=== PATIENT | male | born 1975 | race Two or more races ===

== ENCOUNTER 2022-10-05 19:33 | Emergency (ER) | payer OTHER ==
[~2022-10-05] VITALS: Ht 172.7 cm; Wt 204.1 kg
[2022-10-05] MEDS ORDERED: HYDROcodone-ACET 10/325MG TAB PO ONE (20:00)
[2022-10-05] MEDS ORDERED: KETOROLAC TROMETH 60MG/2ML VIAL IM ONE (20:00)
[2022-10-05 23:02] VITALS: BP 164/92; TEMP 98.7
[2022-10-05 23:09] VITALS: PULSE 98; RESP 22; O2SAT 98
== END 2022-10-05 23:54 | disposition home or self-care (01) ==
LOC: EDBD 19:33 → ER 19:37 → EEVIPCON 19:37 → ER 23:54
DX: S40.011A Contusion of right shoulder, initial encounter (principal); S30.0XXA Contusion of lower back and pelvis, initial encounter; Z88.8 Allergy status to other drugs, medicaments and biological substances; W07.XXXA Fall from chair, initial encounter; Y93.89 Activity, other specified; Y92.89 Other specified places as the place of occurrence of the external cause; Y99.8 Other external cause status
CPT/HCPCS: 73030; 96372; 99283; J1885

== ENCOUNTER 2022-11-07 12:30 | Inpatient (IN) | payer OTHER ==
[~2022-11-07] VITALS: Ht 172.7 cm; Wt 246.4 kg
[2022-11-07 18:39] VITALS: BP 120/77; PULSE 95; RESP 20; TEMP 97.7; O2SAT 94
[2022-11-07] MEDS ORDERED: DEXTROSE (50%) 50ML SYRG IV PRN (19:45)
[2022-11-07 20:00] VITALS: PULSE 96; RESP 18; O2SAT 95
[2022-11-07 21:45] VITALS: BP 145/82; PULSE 96; RESP 18; TEMP 98.2; O2SAT 95
[2022-11-07 21:46] VITALS: BP 145/82; PULSE 96; RESP 18; TEMP 97.3; O2SAT 95
[2022-11-07] MEDS: NYSTATIN TOPICAL CREAM 15GM TOP SCH (22:00)
[2022-11-07] MEDS: InsuLIN REG 1unit/0.01ml Soln (100units/ml) SC SCH (22:00)
[2022-11-07] MEDS: ACCU-CHEK COMFORT CURVE STRIP VI SCH (22:00)
[2022-11-07] MEDS: METHOCARBAMOL 500 MG TAB PO SCH (23:02)
[2022-11-07] MEDS: DOCUSATE SOD 100 MG CAP PO SCH (23:03)
[2022-11-07] MEDS: SENNA 8.6 MG TAB PO SCH (23:06)
[2022-11-08] VITALS (9 sets, daily range): BP systolic 108–140; BP diastolic 67–85; PULSE 88–111; RESP 16–22; TEMP 97.6–98.3; O2SAT 90–97
[2022-11-08] MEDS ORDERED: SEMA2INJ3 SC (02:35)
[2022-11-08] MEDS ORDERED: DICL1GEL59 EX (02:35)
[2022-11-08] MEDS ORDERED: [UNRECOGNIZED DRUG - CODE] PO (02:52)
[2022-11-08] MEDS ORDERED: METH-1181 PO (02:52)
[2022-11-08] MEDS ORDERED: DOCU-265 PO (02:52)
[2022-11-08] MEDS ORDERED: IRBE300T79 PO (02:52)
[2022-11-08] MEDS ORDERED: NIFE1TAB36 PO (02:52)
[2022-11-08] MEDS ORDERED: SENN1TAB14 PO (02:52)
[2022-11-08] MEDS: POLYETHYLENE GLYCOL 17 GM PWDR PO SCH (10:00)
[2022-11-08] MEDS: NIFEdipine ER 30 MG TAB PO SCH (10:46)
[2022-11-08] MEDS: LOSARTAN POTASSIUM 50 MG TAB PO SCH (10:48)
[2022-11-08] MEDS: ENOXAPARIN SOD 40 MG/0.4 ML SYRINGE SC SCH (10:48)
[2022-11-08] MEDS: HYDROcodone-ACET 5/325MG TAB PO PRN (10:59)
[2022-11-08] MEDS: MUPIROCIN 2% OINT 15gm or 22gm FOR MRSA NARES EACHNOSTRI SCH (22:42)
[2022-11-08] MEDS: ZOLPIDEM TARTRATE 5 MG TAB PO PRN (23:25)
[2022-11-09] VITALS (9 sets, daily range): BP systolic 109–137; BP diastolic 76–89; PULSE 83–100; RESP 16–18; TEMP 97.5–98.9; O2SAT 94–99
[2022-11-09] MEDS: HYDROcodone-ACET 10/325MG TAB PO PRN (08:33)
[2022-11-10] VITALS (7 sets, daily range): BP systolic 125–150; BP diastolic 75–106; PULSE 86–96; RESP 18–21; TEMP 97.5–98.6; O2SAT 92–100
[2022-11-11] VITALS (9 sets, daily range): BP systolic 118–145; BP diastolic 60–89; PULSE 89–116; RESP 17–20; TEMP 97.6–99; O2SAT 93–100
[2022-11-12] VITALS (7 sets, daily range): BP systolic 100–142; BP diastolic 72–96; PULSE 69–105; RESP 16–22; TEMP 97.7–98.7; O2SAT 92–99
[2022-11-13] VITALS (10 sets, daily range): BP systolic 103–161; BP diastolic 79–97; PULSE 83–102; RESP 18–22; TEMP 97.5–98.6; O2SAT 94–99
[2022-11-13 11:34] LABS: Basophils # (auto) 0 10 ^3/uL (0-0.2); Basophils % (auto) 0.7 % (0.0-2.0); Eosinophils # (auto) 0.1 10 ^3/uL (0-0.8); Eosinophils % (auto) 2.5 % (0.0-7.0); Hematocrit 50.5 % (41.0-53.0); Hemoglobin 16.4 g/dL (13.5-17.5); Lymphocytes # (auto) 1.3 10 ^3/uL (0.4-5.4); Lymphocytes % (auto) 25.4 % (10.0-50.0); Mean Corpuscular Hemoglobin 30.6 pg (28.0-32.0); Mean Corpuscular Hgb Conc. 32.5 g/dL (32.0-36.0); Monocytes # (auto) 0.5 10 ^3/uL (0-1.3); Monocytes % (auto) 9.9 % (0.0-12.0); Neutrophils # (auto) 3.2 10 ^3/uL (1.6-8.6); Neutrophils % (auto) 61.5 % (37.0-80.0); Nucleated Red Blood Cells % 0.2 %; Red Blood Cells 5.37 10^6/uL (4.5-5.90); Red Cell Distribution Width 14.7 % (11.8-14.3); White Blood Cell 5.3 10^3/uL (4.4-10.8)
[2022-11-13 11:36] LABS: Alanine Aminotransferase 36 U/L (7-40); Albumin 3.9 g/dL (3.2-4.8); Alkaline Phosphatase 68 U/L (46-116); Anion Gap 6 (5-15); Aspartate Aminotransferase 19 U/L (13-40); BUN/Creatinine Ratio 12.7 (10.0-20.0); Blood Urea Nitrogen 10 mg/dL (9-23); Calcium 9.4 mg/dL (8.7-10.4); Carbon Dioxide 28 mmol/L (20-30); Chloride 103 mmol/L (98-107); Glucose 117 mg/dL (74-106); Sodium 137 mmol/L (136-145)
[2022-11-13 11:37] LABS: Bilirubin, Total 0.4 mg/dL (0.2-1.0); Total Protein 6.9 g/dL (5.7-8.2)
[2022-11-13] MEDS: MUPIROCIN 2% OINT 15gm or 22gm FOR MRSA NARES EACHNOSTRI SCH (22:15)
[2022-11-14] VITALS (9 sets, daily range): BP systolic 113–149; BP diastolic 71–90; PULSE 93–113; RESP 17–20; TEMP 97.2–98.6; O2SAT 91–100
[2022-11-15] VITALS (10 sets, daily range): BP systolic 107–172; BP diastolic 67–106; PULSE 87–106; RESP 17–21; TEMP 97.9–98.5; O2SAT 92–100
[2022-11-16] VITALS (10 sets, daily range): BP systolic 129–151; BP diastolic 83–94; PULSE 90–104; RESP 18–20; TEMP 97.8–98.7; O2SAT 92–99
[2022-11-17] VITALS (11 sets, daily range): BP systolic 132–152; BP diastolic 35–103; PULSE 9–100; RESP 16–20; TEMP 97.4–98.5; O2SAT 93–100
[2022-11-18] VITALS (9 sets, daily range): BP systolic 122–137; BP diastolic 58–82; PULSE 88–95; RESP 18–20; TEMP 97.6–98.7; O2SAT 92–98
[2022-11-19] VITALS (10 sets, daily range): BP systolic 117–149; BP diastolic 68–98; PULSE 88–103; RESP 16–20; TEMP 97.6–98.1; O2SAT 90–99
[2022-11-20] VITALS (7 sets, daily range): BP systolic 119–138; BP diastolic 71–85; PULSE 91–107; RESP 18–22; TEMP 97.6–98.9; O2SAT 92–96
[2022-11-20] MEDS ORDERED: [UNRECOGNIZED DRUG - OTHER] SC SCH (13:00)
[2022-11-20] MEDS ORDERED: TIRZEPATIDE SC SCH (13:00)
[2022-11-20] MEDS: NYSTATIN TOPICAL POWDER 15GM TOP SCH (21:32)
[2022-11-21] VITALS (8 sets, daily range): BP systolic 135–155; BP diastolic 80–99; PULSE 71–103; RESP 18–20; TEMP 36.8; O2SAT 92–99
[2022-11-22] VITALS (9 sets, daily range): BP systolic 130–155; BP diastolic 82–98; PULSE 88–97; RESP 16–20; TEMP 36.7; O2SAT 93–99
[2022-11-23] VITALS (8 sets, daily range): BP systolic 126–158; BP diastolic 75–90; PULSE 82–102; RESP 20–24; TEMP 97.5–99.5; O2SAT 92–99
[2022-11-24] VITALS (8 sets, daily range): BP systolic 109–149; BP diastolic 68–97; PULSE 94–103; RESP 14–18; TEMP 97.8–99; O2SAT 93–99
[2022-11-25] VITALS (11 sets, daily range): BP systolic 116–145; BP diastolic 76–86; PULSE 65–106; RESP 16–20; TEMP 97.6–98.5; O2SAT 92–97
[2022-11-25] MEDS: ACETAMINOPHEN 325 MG TAB PO PRN (18:17)
[2022-11-26] VITALS (10 sets, daily range): BP systolic 102–145; BP diastolic 73–93; PULSE 73–131; RESP 16–22; TEMP 97.8–98.4; O2SAT 90–96
[2022-11-26 11:25] LABS: Basophils # (auto) 0 10 ^3/uL (0-0.2); Basophils % (auto) 0.7 % (0.0-2.0); Eosinophils # (auto) 0.1 10 ^3/uL (0-0.8); Eosinophils % (auto) 1.7 % (0.0-7.0); Hematocrit 48.2 % (41.0-53.0); Hemoglobin 15.9 g/dL (13.5-17.5); Lymphocytes # (auto) 1.6 10 ^3/uL (0.4-5.4); Lymphocytes % (auto) 26.3 % (10.0-50.0); Mean Corpuscular Hemoglobin 30.4 pg (28.0-32.0); Mean Corpuscular Hgb Conc. 33.1 g/dL (32.0-36.0); Monocytes # (auto) 0.6 10 ^3/uL (0-1.3); Monocytes % (auto) 10.3 % (0.0-12.0); Neutrophils # (auto) 3.8 10 ^3/uL (1.6-8.6); Nucleated Red Blood Cells % 0.1 %; Red Blood Cells 5.24 10^6/uL (4.5-5.90); Red Cell Distribution Width 14.7 % (11.8-14.3); White Blood Cell 6.2 10^3/uL (4.4-10.8)
[2022-11-26 11:47] LABS: Alanine Aminotransferase 29 U/L (7-40); Albumin 3.8 g/dL (3.2-4.8); Alkaline Phosphatase 67 U/L (46-116); Anion Gap 6 (5-15); Aspartate Aminotransferase 14 U/L (13-40); BUN/Creatinine Ratio 13.7 (10.0-20.0); Bilirubin, Total 0.5 mg/dL (0.2-1.0); Blood Urea Nitrogen 10 mg/dL (9-23); Calcium 9.5 mg/dL (8.5-10.1); Carbon Dioxide 29 mmol/L (20-30); Chloride 102 mmol/L (98-107); Glucose 111 mg/dL (74-106); Potassium 3.9 mmol/L (3.5-5.1); Sodium 137 mmol/L (136-145); Total Protein 6.8 g/dL (5.7-8.2)
[2022-11-26] MEDS: cefTRIAXone 1GM/50ML D5W 50 ML IV ONE (12:07)
[2022-11-26] MEDS: POLYETHYLENE GLYCOL 17 GM PWDR PO SCH (12:14)
[2022-11-26 12:15] LABS: Urine Epithelial Cast None Seen /hpf (<5)
[2022-11-26 12:27] LABS: Urine Bacteria FEW /hpf (None Seen); Urine Blood 1+ /uL (Negative); Urine Budding Yeast FEW /hpf (None Seen); Urine Clarity CLOUDY (Clear); Urine Color Yellow (Yellow); Urine Hyaline Cast FEW /lpf (0 - 2); Urine Mucus FEW (None Seen); Urine Protein, UAD 1+ (Negative); Urine Specific Gravity 1.023 (1.001-1.035); Urine Urobilinogen Normal (Negative); Urine WBC 216 /hpf (0 - 3); Urine WBC Clumps PRESENT /hpf (None Seen); Urine pH 5.5 (5.0-8.0)
[2022-11-26] MEDS: DOCUSATE SOD 100 MG CAP PO SCH (21:07)
[2022-11-27] MEDS: GOLYTELY 4L KIT PO ONE (06:00)
[2022-11-27] MEDS: cefTRIAXone 1GM/50ML D5W 50 ML IV SCH (09:00)
[2022-11-27 10:50] VITALS: O2SAT 93
[2022-11-27 17:00] VITALS: BP 123/83; PULSE 94; RESP 20; TEMP 98.6; O2SAT 94
[2022-11-27 20:00] VITALS: RESP 16
[2022-11-27 22:00] VITALS: BP 139/86; PULSE 108; RESP 19; TEMP 98; O2SAT 94
[2022-11-28] VITALS (8 sets, daily range): BP systolic 102–147; BP diastolic 49–83; PULSE 74–105; RESP 17–20; TEMP 97.3–98.3; O2SAT 93–96
[2022-11-29] VITALS (7 sets, daily range): BP systolic 118–137; BP diastolic 67–99; PULSE 60–98; RESP 20–22; TEMP 97.3–98.2; O2SAT 90–96
[2022-11-30 05:00] VITALS: BP 131/80; PULSE 99; RESP 20; TEMP 98; O2SAT 95
[2022-11-30 08:00] VITALS: PULSE 99; RESP 19
[2022-11-30 08:39] VITALS: BP 118/71; PULSE 99; RESP 19; TEMP 97.7; O2SAT 95
[2022-11-30 12:35] VITALS: BP 110/65; PULSE 101; RESP 18; TEMP 98.2; O2SAT 91
[2022-11-30 17:00] VITALS: BP 135/82; PULSE 79; RESP 19; TEMP 97.7; O2SAT 95
[2022-11-30 22:00] VITALS: BP 137/79; PULSE 80; RESP 18; TEMP 97.8; O2SAT 96
[2022-12-01 04:54] VITALS: BP_SYST 123; BP_SYST 134; BP_DIAS 77; BP_DIAS 80; PULSE 60; PULSE 99; RESP 18; TEMP 98.1; O2SAT 92; O2SAT 99
[2022-12-01 08:00] VITALS: RESP 17
[2022-12-01 09:00] VITALS: BP 127/79; PULSE 53; RESP 18; TEMP 98.2; O2SAT 91
[2022-12-01 13:00] VITALS: BP 136/91; PULSE 65; RESP 19; TEMP 98.6; O2SAT 93
[2022-12-01 16:57] VITALS: BP 135/84; PULSE 94; RESP 18; TEMP 98.3; O2SAT 91
[2022-12-01 22:00] VITALS: BP 147/97; PULSE 100; RESP 18; TEMP 98; O2SAT 90
[2022-12-02 05:00] VITALS: BP 133/78; PULSE 101; RESP 18; TEMP 97.8; O2SAT 92
[2022-12-02 08:30] VITALS: BP 146/82; PULSE 54; RESP 19; TEMP 98.1; O2SAT 90
[2022-12-02 09:44] VITALS: PULSE 62
[2022-12-02] MEDS ORDERED: GABA-339 PO (10:16)
[2022-12-02 12:30] VITALS: BP 123/79; PULSE 85; RESP 19; TEMP 97.7; O2SAT 91
[2022-12-02 16:33] VITALS: BP 130/81; PULSE 89; RESP 19; TEMP 97.7; O2SAT 96
[2022-12-02 22:00] VITALS: BP 141/87; PULSE 89; RESP 20; TEMP 97.8; O2SAT 90
[2022-12-03] VITALS (7 sets, daily range): BP systolic 114–141; BP diastolic 71–88; PULSE 75–103; RESP 18–20; TEMP 97.6–98.5; O2SAT 82–92
[2022-12-03] MEDS: GABAPENTIN 400 MG CAP PO SCH (10:11)
[2022-12-03] MEDS: HYDROcodone-ACET 5/325MG TAB PO PRN (10:14)
[2022-12-04] VITALS (7 sets, daily range): BP systolic 113–135; BP diastolic 70–82; PULSE 68–109; RESP 19–22; TEMP 97.5–98.5; O2SAT 90–96
[2022-12-05 05:00] VITALS: BP 114/67; PULSE 84; RESP 20; TEMP 98; O2SAT 93
[2022-12-05 08:00] VITALS: BP 138/90; PULSE 89; RESP 20; TEMP 98; O2SAT 97
[2022-12-05 08:30] VITALS: RESP 20
[2022-12-05 12:00] VITALS: BP 121/74; PULSE 80; RESP 20; TEMP 98.1; O2SAT 93
[2022-12-05] MEDS: GABAPENTIN 400 MG CAP PO SCH (15:15)
[2022-12-05 16:00] VITALS: BP 115/80; PULSE 104; RESP 20; TEMP 97.8; O2SAT 97
[2022-12-05 22:00] VITALS: BP 120/77; PULSE 88; RESP 19; TEMP 97.8; O2SAT 90
[2022-12-06 04:44] VITALS: BP 139/95; PULSE 83; RESP 19; TEMP 97.5; O2SAT 90
[2022-12-06 08:30] VITALS: RESP 20
[2022-12-06 12:54] VITALS: BP 123/69; PULSE 91; RESP 16; TEMP 98.6; O2SAT 95
[2022-12-06 17:00] VITALS: BP 114/69; PULSE 78; RESP 14; TEMP 97.9; O2SAT 95
[2022-12-06 19:50] VITALS: BP 113/69; PULSE 88; RESP 16; TEMP 98; O2SAT 92
[2022-12-06 22:00] VITALS: BP 113/69; PULSE 88; RESP 16; TEMP 98; O2SAT 92
[2022-12-06] MEDS: IBUPROFEN 800 MG TAB PO PRN (22:25)
[2022-12-07] VITALS (7 sets, daily range): BP systolic 128–144; BP diastolic 74–88; PULSE 64–98; RESP 14–20; TEMP 97.7–97.8; O2SAT 90–96
[2022-12-08] VITALS (7 sets, daily range): BP systolic 106–141; BP diastolic 63–91; PULSE 65–88; RESP 16–22; TEMP 97.7–98.1; O2SAT 90–99
[2022-12-09 05:00] VITALS: BP 151/84; PULSE 96; RESP 16; TEMP 97.5; O2SAT 87
[2022-12-09 08:35] VITALS: BP 122/76; PULSE 74; RESP 22; TEMP 98.3; O2SAT 93
[2022-12-09 12:40] VITALS: BP 120/69; PULSE 96; RESP 23; TEMP 98.5; O2SAT 94
[2022-12-09 16:35] VITALS: BP 133/76; PULSE 62; RESP 22; TEMP 97.7; O2SAT 95
[2022-12-09 18:48] LABS: Chloride 100 mmol/L (98-107); Potassium 5.4 mmol/L (3.5-5.1); Sodium 131 mmol/L (136-145)
[2022-12-09 18:50] LABS: Anion Gap 5 (5-15); Calcium 9.3 mg/dL (8.7-10.4); Carbon Dioxide 26 mmol/L (20-30)
[2022-12-09 18:55] LABS: BUN/Creatinine Ratio 8.2 (10.0-20.0); Blood Urea Nitrogen 6 mg/dL (9-23); Glucose 122 mg/dL (74-106)
[2022-12-09 22:00] VITALS: BP 119/65; PULSE 101; RESP 20; TEMP 98.7; O2SAT 90
[2022-12-10 05:00] VITALS: BP 107/58; PULSE 107; RESP 20; TEMP 98.6; O2SAT 94
[2022-12-10 08:00] VITALS: PULSE 96; RESP 18; TEMP 98.4; O2SAT 93
[2022-12-10 08:58] VITALS: BP 149/77; PULSE 95; RESP 18; TEMP 98.5; O2SAT 93
[2022-12-10] MEDS: POTASSIUM CHL 10 Meq TABLET PO SCH (09:06)
[2022-12-10] MEDS: FUROSEMIDE 20 MG TAB PO SCH ×2 (09:06→14:23)
[2022-12-10 12:47] VITALS: BP 123/66; PULSE 87; RESP 18; TEMP 98.4; O2SAT 93
[2022-12-10 16:38] VITALS: BP 110/71; PULSE 91; RESP 16; TEMP 98.7; O2SAT 91
[2022-12-10 22:00] VITALS: BP 144/85; PULSE 92; RESP 18; TEMP 97.9; O2SAT 93
[2022-12-11] VITALS (7 sets, daily range): BP systolic 102–145; BP diastolic 61–93; PULSE 63–103; RESP 16–22; TEMP 97.3–98.7; O2SAT 88–92
[2022-12-11 10:39] LABS: Anion Gap 3 (5-15); Carbon Dioxide 34 mmol/L (20-30); Chloride 99 mmol/L (98-107); Potassium 4.2 mmol/L (3.5-5.1); Sodium 136 mmol/L (136-145)
[2022-12-11 10:40] LABS: Calcium 9.2 mg/dL (8.5-10.1)
[2022-12-11 10:45] LABS: BUN/Creatinine Ratio 12.1 (10.0-20.0); Blood Urea Nitrogen 7 mg/dL (9-23); Glucose 115 mg/dL (74-106)
[2022-12-11] MEDS ORDERED: PIPERACILLIN-TAZO 4.5GM 100 ML IV SCH (12:00)
[2022-12-12] VITALS (7 sets, daily range): BP systolic 103–121; BP diastolic 67–78; PULSE 72–102; RESP 18–20; TEMP 36.7; O2SAT 88–99
[2022-12-13] VITALS (7 sets, daily range): BP systolic 116–132; BP diastolic 67–81; PULSE 64–97; RESP 14–24; TEMP 36.7; O2SAT 90–91
[2022-12-14 05:00] VITALS: BP 126/75; PULSE 97; RESP 19; TEMP 97.8; O2SAT 92
[2022-12-14 09:00] VITALS: BP 122/80; PULSE 92; RESP 20; TEMP 98.2; O2SAT 100
[2022-12-14] MEDS: MIDAZOLAM HCL 2MG/2ML 2ml VIAL (1mg/ml) ONE (12:51)
[2022-12-14 13:00] VITALS: BP 119/88; PULSE 90; RESP 18; TEMP 97.5; O2SAT 99
[2022-12-14 17:00] VITALS: BP 119/60; PULSE 95; RESP 20; TEMP 97.7; O2SAT 93
[2022-12-14 19:30] VITALS: PULSE 79; RESP 18; O2SAT 90
[2022-12-15] MEDS: HYDROcodone-ACET 10/325MG TAB PO PRN (01:19)
[2022-12-15 05:00] VITALS: BP 129/76; PULSE 87; RESP 15; TEMP 97.6; O2SAT 83
[2022-12-15 09:00] VITALS: BP 128/82; PULSE 90; RESP 17; TEMP 98; O2SAT 85
[2022-12-15 13:00] VITALS: BP 124/64; PULSE 92; RESP 18; TEMP 97.6; O2SAT 90
[2022-12-15 17:00] VITALS: BP 131/82; PULSE 93; RESP 18; TEMP 98; O2SAT 96
[2022-12-15 20:00] VITALS: PULSE 94; RESP 20; O2SAT 97
[2022-12-15 22:00] VITALS: BP 137/90; PULSE 94; RESP 20; TEMP 97.6; O2SAT 97
[2022-12-16 05:00] VITALS: BP 123/98; PULSE 93; RESP 22; TEMP 97.4; O2SAT 88
[2022-12-16 08:54] VITALS: BP 126/87; PULSE 79; RESP 21; TEMP 98.7; O2SAT 95
[2022-12-16 13:00] VITALS: BP 117/75; PULSE 91; RESP 18; TEMP 98.1; O2SAT 96
[2022-12-16 17:00] VITALS: BP 112/58; PULSE 98; RESP 18; TEMP 98.5; O2SAT 100
[2022-12-16 20:00] VITALS: PULSE 89; RESP 20; O2SAT 97
[2022-12-16 21:44] VITALS: BP 127/74; PULSE 89; RESP 21; TEMP 97.9; O2SAT 97
[2022-12-17] VITALS (7 sets, daily range): BP systolic 100–144; BP diastolic 60–87; PULSE 74–100; RESP 19–20; TEMP 98.1–98.4; O2SAT 90–95
[2022-12-18 05:00] VITALS: BP 112/70; PULSE 105; RESP 20; TEMP 97.8; O2SAT 94
[2022-12-18 08:00] VITALS: PULSE 96; RESP 20; O2SAT 90
[2022-12-18 09:00] VITALS: BP 140/87; PULSE 93; RESP 18; TEMP 98.1; O2SAT 93
[2022-12-18 13:00] VITALS: BP 136/78; PULSE 80; RESP 20; TEMP 98.9; O2SAT 93
[2022-12-18 17:00] VITALS: BP 91/42; PULSE 68; RESP 18; TEMP 97.9; O2SAT 100
[2022-12-18 22:00] VITALS: BP 100/56; PULSE 98; RESP 18; TEMP 97.9; O2SAT 90
[2022-12-19] VITALS (7 sets, daily range): BP systolic 113–132; BP diastolic 64–84; PULSE 86–103; RESP 18–22; TEMP 97.7–99.3; O2SAT 90–96
[2022-12-19] MEDS: HYDROcodone-ACET 10/325MG TAB PO PRN (05:53)
[2022-12-20] VITALS (7 sets, daily range): BP systolic 90–143; BP diastolic 50–71; PULSE 88–100; RESP 17–19; TEMP 97.9–98.9; O2SAT 91–92
[2022-12-21] VITALS (7 sets, daily range): BP systolic 127–143; BP diastolic 68–86; PULSE 90–106; RESP 16–20; TEMP 97.5–98.6; O2SAT 90–99
[2022-12-22 05:00] VITALS: BP 123/79; PULSE 69; RESP 20; TEMP 97.7; O2SAT 91
[2022-12-22 08:00] VITALS: BP 137/94; PULSE 94; RESP 22; TEMP 97.6; O2SAT 90
[2022-12-22 09:00] VITALS: BP 137/94; PULSE 94; RESP 22; TEMP 97.6; O2SAT 97
[2022-12-22 13:00] VITALS: BP 149/75; PULSE 94; RESP 21; TEMP 97.8; O2SAT 91
[2022-12-22 17:00] VITALS: BP 144/66; PULSE 82; RESP 16; TEMP 97.6; O2SAT 95
[2022-12-22 22:00] VITALS: BP 107/67; PULSE 101; RESP 18; TEMP 98.8; O2SAT 99
[2022-12-23 05:00] VITALS: BP 124/87; PULSE 66; RESP 20; TEMP 98.1; O2SAT 92
[2022-12-23 08:30] LABS: Basophils # (auto) 0 10 ^3/uL (0-0.2); Basophils % (auto) 0.4 % (0.0-2.0); Eosinophils # (auto) 0.1 10 ^3/uL (0-0.8); Eosinophils % (auto) 1.4 % (0.0-7.0); Hematocrit 47.8 % (41.0-53.0); Hemoglobin 15.5 g/dL (13.5-17.5); Lymphocytes # (auto) 1.1 10 ^3/uL (0.4-5.4); Lymphocytes % (auto) 18.7 % (10.0-50.0); Mean Corpuscular Hemoglobin 30.6 pg (28.0-32.0); Mean Corpuscular Hgb Conc. 32.4 g/dL (32.0-36.0); Mean Corpuscular Volume 94.4 fL (80.0-100.0); Monocytes # (auto) 0.5 10 ^3/uL (0-1.3); Monocytes % (auto) 7.9 % (0.0-12.0); Neutrophils # (auto) 4.1 10 ^3/uL (1.6-8.6); Neutrophils % (auto) 71.6 % (37.0-80.0); Nucleated Red Blood Cells % 0.3 %; Red Blood Cells 5.06 10^6/uL (4.5-5.90); Red Cell Distribution Width 15.3 % (11.8-14.3); White Blood Cell 5.8 10^3/uL (4.4-10.8)
[2022-12-23 08:50] LABS: Alanine Aminotransferase 24 U/L (7-40); Albumin 3.8 g/dL (3.2-4.8); Alkaline Phosphatase 71 U/L (46-116); Anion Gap 3 (5-15); Aspartate Aminotransferase 17 U/L (13-40); BUN/Creatinine Ratio 11.7 (10.0-20.0); Bilirubin, Total 0.4 mg/dL (0.2-1.0); Blood Urea Nitrogen 7 mg/dL (9-23); Calcium 9.1 mg/dL (8.5-10.1); Carbon Dioxide 34 mmol/L (20-30); Chloride 97 mmol/L (98-107); Glucose 93 mg/dL (74-106); Potassium 4.6 mmol/L (3.5-5.1); Sodium 134 mmol/L (136-145); Total Protein 6.5 g/dL (5.7-8.2)
[2022-12-23 09:00] VITALS: BP 110/78; PULSE 98; RESP 20; TEMP 98.1; O2SAT 90
[2022-12-23 13:00] VITALS: BP 124/73; PULSE 99; RESP 21; TEMP 97.5; O2SAT 92
[2022-12-23 17:00] VITALS: BP 103/34; PULSE 59; RESP 21; TEMP 97.5; O2SAT 92
[2022-12-23 22:00] VITALS: BP 118/58; PULSE 61; RESP 21; TEMP 98.1; O2SAT 90
[2022-12-24 05:00] VITALS: BP 151/86; PULSE 99; RESP 21; TEMP 97.6; O2SAT 90
[2022-12-24 08:00] VITALS: O2SAT 93
[2022-12-24 09:00] VITALS: BP 124/52; PULSE 63; RESP 19; TEMP 97.4; O2SAT 90
[2022-12-24 13:00] VITALS: BP 128/58; PULSE 56; RESP 19; TEMP 97.7; O2SAT 92
[2022-12-24 20:00] VITALS: PULSE 85; O2SAT 92
[2022-12-24 22:00] VITALS: BP 117/68; PULSE 85; RESP 18; TEMP 98.9; O2SAT 89
[2022-12-25] VITALS (7 sets, daily range): BP systolic 123–152; BP diastolic 63–86; PULSE 71–102; RESP 14–22; TEMP 97.5–98.6; O2SAT 92–100
[2022-12-26] VITALS (7 sets, daily range): BP systolic 106–139; BP diastolic 62–90; PULSE 73–100; RESP 16–20; TEMP 97.6–98.2; O2SAT 90–95
[2022-12-26] MEDS: METHOCARBAMOL 500 MG TAB PO SCH (12:43)
[2022-12-26] MEDS: POTASSIUM CHL 10 Meq TABLET PO SCH (14:55)
[2022-12-26] MEDS: FUROSEMIDE 20 MG TAB PO SCH (18:48)
[2022-12-26] MEDS: HYDROcodone-ACET 5/325MG TAB PO PRN (18:48)
[2022-12-27] VITALS (7 sets, daily range): BP systolic 113–154; BP diastolic 68–93; PULSE 88–98; RESP 18–19; TEMP 97.7–98.3; O2SAT 90–96
[2022-12-27 06:19] LABS: Anion Gap 3 (5-15); Carbon Dioxide 36 mmol/L (20-30); Chloride 99 mmol/L (98-107); Potassium 4.5 mmol/L (3.5-5.1); Sodium 138 mmol/L (136-145)
[2022-12-27 06:20] LABS: Calcium 9.2 mg/dL (8.7-10.4)
[2022-12-27 06:25] LABS: BUN/Creatinine Ratio 17.4 (10.0-20.0); Blood Urea Nitrogen 12 mg/dL (9-23); Glucose 101 mg/dL (74-106)
[2022-12-27] MEDS: HYDROcodone-ACET 5/325MG TAB PO PRN (11:16)
[2022-12-28] VITALS (7 sets, daily range): BP systolic 115–129; BP diastolic 64–86; PULSE 100–104; RESP 18–21; TEMP 98.1–98.8; O2SAT 90–93
[2022-12-29] VITALS (7 sets, daily range): BP systolic 98–134; BP diastolic 62–88; PULSE 70–102; RESP 17–20; TEMP 97.2–98.6; O2SAT 90–94
[2022-12-30 05:00] VITALS: BP 113/81; PULSE 105; RESP 18; TEMP 97.7; O2SAT 90
[2022-12-30 08:00] VITALS: BP 102/81; PULSE 104; PULSE 99; RESP 18; TEMP 98.7; O2SAT 92
[2022-12-30 12:00] VITALS: BP_SYST 108; BP_SYST 115; BP_DIAS 79; BP_DIAS 83; PULSE 104; PULSE 80; RESP 18; TEMP 97.8; TEMP 98.5; O2SAT 91; O2SAT 96
[2022-12-30 16:00] VITALS: BP 110/33; PULSE 112; RESP 22; TEMP 99.5; O2SAT 92
[2022-12-30 20:00] VITALS: RESP 20
[2022-12-30 22:00] VITALS: BP 111/65; PULSE 106; RESP 21; TEMP 98.6; O2SAT 91
[2022-12-31 05:00] VITALS: BP 128/58; PULSE 68; RESP 21; TEMP 98; O2SAT 90
[2022-12-31 08:00] VITALS: PULSE 97; RESP 18
[2022-12-31 08:53] VITALS: BP 145/84; PULSE 100; RESP 19; TEMP 98.6; O2SAT 90
[2022-12-31 12:30] VITALS: BP 145/101; PULSE 114; RESP 16; TEMP 99.3; O2SAT 90
[2022-12-31 16:36] VITALS: BP_SYST 125; BP_SYST 145; BP_DIAS 69; BP_DIAS 81; PULSE 114; PULSE 119; RESP 16; RESP 18; TEMP 98; TEMP 99.3; O2SAT 90; O2SAT 91
[2022-12-31 20:58] VITALS: BP 115/75; PULSE 96; RESP 20; TEMP 98.5; O2SAT 85
[2023-01-01 05:21] VITALS: BP 154/97; PULSE 113; RESP 20; O2SAT 93
[2023-01-01 08:00] VITALS: PULSE 109; RESP 19
[2023-01-01 08:40] VITALS: BP 132/87; PULSE 120; RESP 20; TEMP 99.2; O2SAT 92
[2023-01-01 12:40] VITALS: BP 132/80; PULSE 109; RESP 19; TEMP 99.7; O2SAT 90
[2023-01-01 16:40] VITALS: BP 125/68; PULSE 99; RESP 18; TEMP 98.6; O2SAT 90
[2023-01-01 22:00] VITALS: BP 120/70; PULSE 107; RESP 18; TEMP 99.2; O2SAT 92
[2023-01-02 05:00] VITALS: BP 122/47; PULSE 87; RESP 17; TEMP 98; O2SAT 94
[2023-01-02 09:00] VITALS: BP 130/82; PULSE 100; RESP 17; TEMP 98.2; O2SAT 94
[2023-01-02 13:00] VITALS: BP 105/74; PULSE 96; RESP 17; TEMP 99.2; O2SAT 93
[2023-01-02 17:00] VITALS: BP 118/64; PULSE 85; RESP 22; TEMP 100; O2SAT 92
[2023-01-02 20:00] VITALS: PULSE 89; O2SAT 2
[2023-01-02] MEDS: HYDROmorphone HCL 2 MG TAB PO PRN (20:36)
[2023-01-02] MEDS ORDERED: HYDROcodone-ACET 5/325MG TAB PO PRN (20:45)
[2023-01-02 22:00] VITALS: BP 102/60; PULSE 103; RESP 18; TEMP 98.5; O2SAT 94
[2023-01-03] VITALS (12 sets, daily range): BP systolic 107–131; BP diastolic 59–86; PULSE 69–111; RESP 12–22; TEMP 98.2–99.4; O2SAT 70–98
[2023-01-03] MEDS: NALOXONE HCL 0.4 MG/ML VIAL SUBCUT ONE (10:12)
[2023-01-03] MEDS: HYDROcodone-ACET 5/325MG TAB PO PRN (18:14)
[2023-01-04] VITALS (19 sets, daily range): BP systolic 101–124; BP diastolic 55–78; PULSE 80–105; RESP 18–22; TEMP 98.1–99.3; O2SAT 90–98
[2023-01-04 00:18] LABS: Basophils # (auto) 0.1 10 ^3/uL (0-0.2); Basophils % (auto) 0.6 % (0.0-2.0); Eosinophils # (auto) 0 10 ^3/uL (0-0.8); Eosinophils % (auto) 0.4 % (0.0-7.0); Hematocrit 46.1 % (41.0-53.0); Hemoglobin 14.9 g/dL (13.5-17.5); Lymphocytes # (auto) 1.2 10 ^3/uL (0.4-5.4); Lymphocytes % (auto) 14.4 % (10.0-50.0); Mean Corpuscular Hemoglobin 30.7 pg (28.0-32.0); Mean Corpuscular Hgb Conc. 32.4 g/dL (32.0-36.0); Mean Corpuscular Volume 94.8 fL (80.0-100.0); Monocytes # (auto) 0.7 10 ^3/uL (0-1.3); Monocytes % (auto) 9.2 % (0.0-12.0); Neutrophils # (auto) 6.1 10 ^3/uL (1.6-8.6); Neutrophils % (auto) 75.4 % (37.0-80.0); Nucleated Red Blood Cells % 0.1 %; Red Blood Cells 4.86 10^6/uL (4.5-5.90); Red Cell Distribution Width 15.7 % (11.8-14.3); White Blood Cell 8.1 10^3/uL (4.4-10.8)
[2023-01-04 00:24] LABS: Chloride 95 mmol/L (98-107); Potassium 4.4 mmol/L (3.5-5.1); Sodium 134 mmol/L (136-145)
[2023-01-04 00:25] LABS: Anion Gap 1 (5-15); Calcium 8.9 mg/dL (8.7-10.4); Carbon Dioxide 38 mmol/L (20-30)
[2023-01-04 00:30] LABS: BUN/Creatinine Ratio 19.7 (10.0-20.0); Blood Urea Nitrogen 14 mg/dL (9-23); Glucose 124 mg/dL (74-106)
[2023-01-04] MEDS: levoFLOXacin 500 MG TAB PO SCH (00:34)
[2023-01-04] MEDS: IPRATROPIUM BROM 0.5 MG/2.5ML INH SOL NEB SCH (00:48)
[2023-01-04] MEDS: ALBUTEROL MEDNEB 2.5 mg/3ml NEB NEB SCH (00:48)
[2023-01-04] MEDS ORDERED: NITROGLYCERIN 0.4 MG SL TAB SL PRN (19:30)
[2023-01-04] MEDS ORDERED: MORPHINE SULFATE INJ 2 MG/ml SYRG IV PRN (19:30)
[2023-01-05] VITALS (12 sets, daily range): BP systolic 106–116; BP diastolic 60–78; PULSE 63–105; RESP 14–20; TEMP 97.6–99.3; O2SAT 91–100
[2023-01-06] VITALS (15 sets, daily range): BP systolic 105–130; BP diastolic 54–78; PULSE 75–104; RESP 18–23; TEMP 98.1–98.7; O2SAT 84–100
[2023-01-06] MEDS: FUROSEMIDE 40 MG TAB PO SCH (06:00)
[2023-01-06] MEDS ORDERED: FUROSEMIDE 40 MG TAB PO SCH (18:00)
[2023-01-07] VITALS (16 sets, daily range): BP systolic 113–138; BP diastolic 67–77; PULSE 87–106; RESP 18–23; TEMP 97.6–98.4; O2SAT 90–100
[2023-01-07] MEDS: METHOCARBAMOL 500 MG TAB PO PRN (22:31)
[2023-01-08] VITALS (15 sets, daily range): BP systolic 100–153; BP diastolic 52–89; PULSE 86–108; RESP 16–98; TEMP 97.4–98.8; O2SAT 20–100
[2023-01-08] MEDS: ENOXAPARIN SOD 60 MG/0.6 ML SYRINGE SC SCH (12:04)
[2023-01-09] VITALS (16 sets, daily range): BP systolic 115–140; BP diastolic 68–82; PULSE 88–114; RESP 16–23; TEMP 97.8–98.8; O2SAT 91–100
[2023-01-10] VITALS (14 sets, daily range): BP systolic 100–142; BP diastolic 70–80; PULSE 91–109; RESP 14–24; TEMP 97.6–98.6; O2SAT 90–99
[2023-01-11] VITALS (17 sets, daily range): BP systolic 107–135; BP diastolic 65–76; PULSE 82–112; RESP 18–22; TEMP 97.4–98.5; O2SAT 91–99
[2023-01-12] VITALS (14 sets, daily range): BP systolic 103–134; BP diastolic 70–79; PULSE 88–107; RESP 18–20; TEMP 98–98.3; O2SAT 93–99
[2023-01-13] VITALS (13 sets, daily range): BP systolic 106–137; BP diastolic 61–79; PULSE 82–103; RESP 18–20; TEMP 97.3–98.7; O2SAT 90–99
[2023-01-14] VITALS (16 sets, daily range): BP systolic 100–117; BP diastolic 66–73; PULSE 88–107; RESP 18–22; TEMP 97.7–99.5; O2SAT 5–98
[2023-01-14 07:26] LABS: Basophils # (auto) 0 10 ^3/uL (0-0.2); Basophils % (auto) 0.6 % (0.0-2.0); Eosinophils # (auto) 0.1 10 ^3/uL (0-0.8); Eosinophils % (auto) 1.8 % (0.0-7.0); Hematocrit 47.1 % (41.0-53.0); Hemoglobin 15.1 g/dL (13.5-17.5); Lymphocytes # (auto) 0.8 10 ^3/uL (0.4-5.4); Lymphocytes % (auto) 14.3 % (10.0-50.0); Mean Corpuscular Hemoglobin 30.1 pg (28.0-32.0); Mean Corpuscular Hgb Conc. 32.1 g/dL (32.0-36.0); Mean Corpuscular Volume 93.6 fL (80.0-100.0); Monocytes # (auto) 0.4 10 ^3/uL (0-1.3); Monocytes % (auto) 7.7 % (0.0-12.0); Neutrophils # (auto) 4.1 10 ^3/uL (1.6-8.6); Neutrophils % (auto) 75.6 % (37.0-80.0); Nucleated Red Blood Cells % 0.1 %; Red Blood Cells 5.03 10^6/uL (4.5-5.90); Red Cell Distribution Width 15.5 % (11.8-14.3); White Blood Cell 5.4 10^3/uL (4.4-10.8)
[2023-01-14 07:37] LABS: Alanine Aminotransferase 17 U/L (7-40); Alkaline Phosphatase 62 U/L (46-116); Anion Gap 3 (5-15); Aspartate Aminotransferase 13 U/L (13-40); BUN/Creatinine Ratio 15.6 (10.0-20.0); Bilirubin, Total 0.5 mg/dL (0.2-1.0); Blood Urea Nitrogen 10 mg/dL (9-23); Calcium 9.3 mg/dL (8.5-10.1); Carbon Dioxide 38 mmol/L (20-30); Chloride 98 mmol/L (98-107); Glucose 106 mg/dL (74-106); Potassium 4.3 mmol/L (3.5-5.1); Sodium 139 mmol/L (136-145); Total Protein 6.7 g/dL (5.7-8.2)
[2023-01-14] MEDS: ENOXAPARIN SOD 60 MG/0.6 ML SYRINGE SC SCH (21:32)
[2023-01-15] VITALS (16 sets, daily range): BP systolic 111–130; BP diastolic 66–86; PULSE 64–107; RESP 16–22; TEMP 36.8; O2SAT 3–100
[2023-01-16] VITALS (16 sets, daily range): BP systolic 123–134; BP diastolic 69–89; PULSE 86–104; RESP 20–24; TEMP 97.7–98.1; O2SAT 92–98
[2023-01-17] VITALS (16 sets, daily range): BP systolic 108–140; BP diastolic 58–79; PULSE 82–106; RESP 18–21; TEMP 97.5–98.6; O2SAT 89–97
[2023-01-18] VITALS (17 sets, daily range): BP systolic 99–143; BP diastolic 55–92; PULSE 87–104; RESP 15–22; TEMP 97.5–98.2; O2SAT 92–99
[2023-01-19] VITALS (17 sets, daily range): BP systolic 105–142; BP diastolic 59–84; PULSE 86–105; RESP 14–18; TEMP 97.5–98.2; O2SAT 90–100
[2023-01-20] VITALS (15 sets, daily range): BP systolic 114–132; BP diastolic 70–81; PULSE 64–101; RESP 14–20; TEMP 97.5–98.1; O2SAT 91–100
[2023-01-21] VITALS (16 sets, daily range): BP systolic 120–140; BP diastolic 70–82; PULSE 88–104; RESP 17–22; TEMP 97.5–98.1; O2SAT 91–100
[2023-01-21] MEDS: ALBUTEROL SULF 2.5 MG/0.5ML(0.5%) NEB SOLN ONE ×2 (12:23→18:06)
[2023-01-21] MEDS ORDERED: GABA-1251 PO (16:51)
[2023-01-21] MEDS ORDERED: ENO60SY SC (16:51)
[2023-01-21] MEDS ORDERED: DOCU-265 PO (16:51)
[2023-01-21] MEDS ORDERED: LOSA50TA46 PO (16:51)
[2023-01-21] MEDS ORDERED: HYDR-4902 PO (16:51)
[2023-01-21] MEDS ORDERED: FURO40TA4 PO (16:51)
[2023-01-21] MEDS ORDERED: IBUP-1455 PO (16:51)
[2023-01-21] MEDS ORDERED: NIFE1TAB31 PO (16:51)
[2023-01-21] MEDS ORDERED: SENN-105 PO (16:51)
[2023-01-21] MEDS ORDERED: METH-1181 PO (16:51)
[2023-01-21] MEDS ORDERED: POTA-211 PO (16:51)
[2023-01-22] VITALS (15 sets, daily range): BP systolic 120–138; BP diastolic 70–94; PULSE 93–109; RESP 14–20; TEMP 97.5–98.2; O2SAT 90–100
[2023-01-22] MEDS: ALBUTEROL SULF 2.5 MG/0.5ML(0.5%) NEB SOLN NEB SCH (00:25)
[2023-01-23] VITALS (14 sets, daily range): BP systolic 99–126; BP diastolic 68–88; PULSE 93–110; RESP 17–21; TEMP 97.5–98.9; O2SAT 91–100
[2023-01-24] VITALS (17 sets, daily range): BP systolic 123–133; BP diastolic 72–79; PULSE 73–107; RESP 17–20; TEMP 98.1–98.8; O2SAT 60–100
[2023-01-25] VITALS (15 sets, daily range): BP systolic 121–131; BP diastolic 74–89; PULSE 90–108; RESP 14–24; TEMP 97.7–98.2; O2SAT 92–99
[2023-01-26] VITALS (17 sets, daily range): BP systolic 104–117; BP diastolic 60–75; PULSE 76–104; RESP 16–22; TEMP 97.8–98.2; O2SAT 90–99
[2023-01-27] VITALS (17 sets, daily range): BP systolic 104–145; BP diastolic 60–88; PULSE 73–103; RESP 14–20; TEMP 98–99.1; O2SAT 90–100
[2023-01-28] VITALS (15 sets, daily range): BP systolic 95–121; BP diastolic 58–73; PULSE 68–112; RESP 18–20; TEMP 97.5–98.4; O2SAT 92–100
[2023-01-28] MEDS: IBUPROFEN 800 MG TAB PO SCH (12:45)
[2023-01-28] MEDS: PANTOPRAZOLE 40 MG TAB PO SCH (21:40)
[2023-01-29] VITALS (16 sets, daily range): BP systolic 99–123; BP diastolic 62–75; PULSE 80–101; RESP 17–22; TEMP 97–98.4; O2SAT 91–100
[2023-01-30] VITALS (15 sets, daily range): BP systolic 111–129; BP diastolic 65–76; PULSE 86–112; RESP 15–25; TEMP 97.1–98.5; O2SAT 93–99
[2023-01-31] VITALS (16 sets, daily range): BP systolic 100–138; BP diastolic 67–91; PULSE 88–110; RESP 17–20; TEMP 97.3–99.2; O2SAT 91–100
[2023-01-31] MEDS: IBUPROFEN 800 MG TAB PO PRN (09:30)
[2023-02-01] VITALS (16 sets, daily range): BP systolic 108–122; BP diastolic 67–92; PULSE 87–112; RESP 16–22; TEMP 97.5–99; O2SAT 90–100
[2023-02-02] VITALS (19 sets, daily range): BP systolic 95–116; BP diastolic 58–75; PULSE 81–108; RESP 15–20; TEMP 97.7–98.1; O2SAT 92–100
[2023-02-03] VITALS (17 sets, daily range): BP systolic 104–121; BP diastolic 55–74; PULSE 55–110; RESP 16–85; TEMP 97.1–98.6; O2SAT 88–98
[2023-02-03 06:50] LABS: Basophils # (auto) 0 10 ^3/uL (0-0.2); Basophils % (auto) 0.7 % (0.0-2.0); Eosinophils # (auto) 0.1 10 ^3/uL (0-0.8); Eosinophils % (auto) 1.7 % (0.0-7.0); Hematocrit 44.9 % (41.0-53.0); Hemoglobin 14.6 g/dL (13.5-17.5); Lymphocytes # (auto) 1.2 10 ^3/uL (0.4-5.4); Lymphocytes % (auto) 18.7 % (10.0-50.0); Mean Corpuscular Hemoglobin 30.2 pg (28.0-32.0); Mean Corpuscular Hgb Conc. 32.5 g/dL (32.0-36.0); Monocytes # (auto) 0.5 10 ^3/uL (0-1.3); Monocytes % (auto) 7.5 % (0.0-12.0); Neutrophils # (auto) 4.8 10 ^3/uL (1.6-8.6); Neutrophils % (auto) 71.4 % (37.0-80.0); Nucleated Red Blood Cells % 0.1 %; Red Blood Cells 4.82 10^6/uL (4.5-5.90); Red Cell Distribution Width 15.2 % (11.8-14.3); White Blood Cell 6.7 10^3/uL (4.4-10.8)
[2023-02-03 07:11] LABS: Alanine Aminotransferase 21 U/L (7-40); Albumin 3.9 g/dL (3.2-4.8); Alkaline Phosphatase 67 U/L (46-116); Anion Gap 5 (5-15); Aspartate Aminotransferase 15 U/L (13-40); BUN/Creatinine Ratio 16.7 (10.0-20.0); Blood Urea Nitrogen 11 mg/dL (9-23); Calcium 9.6 mg/dL (8.5-10.1); Carbon Dioxide 32 mmol/L (20-30); Chloride 101 mmol/L (98-107); Glucose 116 mg/dL (74-106); Potassium 4.2 mmol/L (3.5-5.1); Sodium 138 mmol/L (136-145)
[2023-02-03 07:12] LABS: Bilirubin, Total 0.3 mg/dL (0.2-1.0); Total Protein 6.6 g/dL (5.7-8.2)
[2023-02-04] VITALS (18 sets, daily range): BP systolic 104–136; BP diastolic 58–82; PULSE 63–105; RESP 18–20; TEMP 97.3–98.6; O2SAT 90–99
[2023-02-05] VITALS (15 sets, daily range): BP systolic 104–132; BP diastolic 68–87; PULSE 83–110; RESP 16–20; TEMP 97.4–98.1; O2SAT 93–100
[2023-02-06] VITALS (14 sets, daily range): BP systolic 100–133; BP diastolic 61–89; PULSE 85–113; RESP 16–24; TEMP 97.8–98.3; O2SAT 91–99
[2023-02-07] VITALS (15 sets, daily range): BP systolic 107–139; BP diastolic 62–79; PULSE 90–112; RESP 16–20; TEMP 97.5–98.6; O2SAT 90–99
[2023-02-08] VITALS (15 sets, daily range): BP systolic 102–139; BP diastolic 62–88; PULSE 86–109; RESP 18–22; TEMP 97.5–98.5; O2SAT 91–100
[2023-02-09] VITALS (19 sets, daily range): BP systolic 105–127; BP diastolic 69–76; PULSE 88–105; RESP 16–22; TEMP 97.3–98.6; O2SAT 90–100
[2023-02-10] VITALS (16 sets, daily range): BP systolic 103–127; BP diastolic 53–85; PULSE 82–107; RESP 17–22; TEMP 96.3–97.7; O2SAT 91–99
[2023-02-11] VITALS (19 sets, daily range): BP systolic 102–129; BP diastolic 65–84; PULSE 56–101; RESP 16–21; TEMP 96.6–97.9; O2SAT 93–99
[2023-02-11] MEDS: HYDROcodone-ACET 10/325MG TAB PO PRN (13:08)
[2023-02-12] VITALS (16 sets, daily range): BP systolic 103–115; BP diastolic 68–74; PULSE 88–115; RESP 17–20; TEMP 97.4–97.8; O2SAT 92–99
[2023-02-12 06:40] LABS: Basophils # (auto) 0 10 ^3/uL (0-0.2); Basophils % (auto) 0.5 % (0.0-2.0); Eosinophils # (auto) 0.2 10 ^3/uL (0-0.8); Eosinophils % (auto) 3.1 % (0.0-7.0); Hematocrit 46.2 % (41.0-53.0); Hemoglobin 15.1 g/dL (13.5-17.5); Lymphocytes # (auto) 1.2 10 ^3/uL (0.4-5.4); Mean Corpuscular Hemoglobin 30.3 pg (28.0-32.0); Mean Corpuscular Hgb Conc. 32.8 g/dL (32.0-36.0); Mean Corpuscular Volume 92.6 fL (80.0-100.0); Monocytes # (auto) 0.4 10 ^3/uL (0-1.3); Monocytes % (auto) 8.9 % (0.0-12.0); Neutrophils # (auto) 3.1 10 ^3/uL (1.6-8.6); Neutrophils % (auto) 62.5 % (37.0-80.0); Nucleated Red Blood Cells % 0.3 %; Red Blood Cells 4.99 10^6/uL (4.5-5.90)
[2023-02-12 07:06] LABS: Alanine Aminotransferase 30 U/L (7-40); Alkaline Phosphatase 67 U/L (46-116); Anion Gap 5 (5-15); Aspartate Aminotransferase 17 U/L (13-40); BUN/Creatinine Ratio 17.2 (10.0-20.0); Bilirubin, Total 0.3 mg/dL (0.2-1.0); Blood Urea Nitrogen 11 mg/dL (9-23); Calcium 9.6 mg/dL (8.5-10.1); Carbon Dioxide 30 mmol/L (20-30); Chloride 102 mmol/L (98-107); Glucose 102 mg/dL (74-106); Potassium 4.2 mmol/L (3.5-5.1); Sodium 137 mmol/L (136-145); Total Protein 6.8 g/dL (5.7-8.2)
[2023-02-13] VITALS (16 sets, daily range): BP systolic 97–133; BP diastolic 45–82; PULSE 63–108; RESP 17–21; TEMP 97.5–98; O2SAT 92–100
[2023-02-14] VITALS (16 sets, daily range): BP systolic 110–130; BP diastolic 65–79; PULSE 65–113; RESP 17–87; TEMP 97.5–98.2; O2SAT 94–100
[2023-02-15] VITALS (18 sets, daily range): BP systolic 100–125; BP diastolic 66–73; PULSE 79–97; RESP 16–20; TEMP 97.6–98.4; O2SAT 91–98
[2023-02-16] VITALS (17 sets, daily range): BP systolic 115–131; BP diastolic 63–82; PULSE 80–104; RESP 14–18; TEMP 97.8–98.5; O2SAT 90–98
[2023-02-17] VITALS (17 sets, daily range): BP systolic 105–138; BP diastolic 62–83; PULSE 83–104; RESP 16–21; TEMP 97.6–98.3; O2SAT 90–99
[2023-02-18] VITALS (15 sets, daily range): BP systolic 100–126; BP diastolic 68–84; PULSE 76–98; RESP 16–20; TEMP 97.6–98.6; O2SAT 92–99
[2023-02-19] VITALS (15 sets, daily range): BP systolic 110–125; BP diastolic 73–80; PULSE 83–101; RESP 16–22; TEMP 97.7–98.5; O2SAT 92–100
[2023-02-20] VITALS (14 sets, daily range): BP systolic 112–135; BP diastolic 65–86; PULSE 84–106; RESP 15–18; TEMP 97.6–98; O2SAT 92–100
[2023-02-21] VITALS (15 sets, daily range): BP systolic 104–124; BP diastolic 67–78; PULSE 93–108; RESP 15–20; TEMP 96.8–98.4; O2SAT 90–99
[2023-02-22] VITALS (14 sets, daily range): BP systolic 103–128; BP diastolic 58–81; PULSE 89–103; RESP 15–22; TEMP 97.7–98.4; O2SAT 92–100
[2023-02-23] VITALS (13 sets, daily range): BP systolic 113–133; BP diastolic 64–85; PULSE 74–99; RESP 16–22; TEMP 97.5–98.2; O2SAT 92–98
[2023-02-24] VITALS (14 sets, daily range): BP systolic 113–133; BP diastolic 71–82; PULSE 82–105; RESP 14–20; TEMP 97.6–98.6; O2SAT 18–100
[2023-02-25] VITALS (14 sets, daily range): BP systolic 104–126; BP diastolic 64–74; PULSE 71–105; RESP 15–20; TEMP 97.6–98.7; O2SAT 92–99
[2023-02-26] VITALS (14 sets, daily range): BP systolic 103–116; BP diastolic 65–75; PULSE 88–107; RESP 18–24; TEMP 97.8–98.7; O2SAT 91–100
[2023-02-27] VITALS (14 sets, daily range): BP systolic 107–137; BP diastolic 49–87; PULSE 78–108; RESP 18–23; TEMP 96.2–98.7; O2SAT 92–100
[2023-02-28] VITALS (21 sets, daily range): BP systolic 110–119; BP diastolic 61–73; PULSE 62–106; RESP 17–26; TEMP 97.7–98.3; O2SAT 92–100
[2023-03-01] VITALS (14 sets, daily range): BP systolic 106–132; BP diastolic 65–79; PULSE 85–106; RESP 16–23; TEMP 97.7–98.3; O2SAT 90–100
[2023-03-02] VITALS (13 sets, daily range): BP systolic 112–120; BP diastolic 71–80; PULSE 88–107; RESP 18–23; TEMP 97.4–98.6; O2SAT 92–100
[2023-03-02 07:02] LABS: Basophils # (auto) 0 10 ^3/uL (0-0.2); Basophils % (auto) 0.7 % (0.0-2.0); Eosinophils # (auto) 0.1 10 ^3/uL (0-0.8); Eosinophils % (auto) 2.5 % (0.0-7.0); Hematocrit 43.3 % (41.0-53.0); Hemoglobin 14.5 g/dL (13.5-17.5); Lymphocytes % (auto) 19.5 % (10.0-50.0); Mean Corpuscular Hemoglobin 31.1 pg (28.0-32.0); Mean Corpuscular Hgb Conc. 33.4 g/dL (32.0-36.0); Monocytes # (auto) 0.5 10 ^3/uL (0-1.3); Neutrophils # (auto) 3.6 10 ^3/uL (1.6-8.6); Neutrophils % (auto) 68.3 % (37.0-80.0); Nucleated Red Blood Cells % 0.1 %; Red Blood Cells 4.65 10^6/uL (4.5-5.90); Red Cell Distribution Width 14.7 % (11.8-14.3); White Blood Cell 5.3 10^3/uL (4.4-10.8)
[2023-03-02 08:52] LABS: Alanine Aminotransferase 25 U/L (7-40); Alkaline Phosphatase 62 U/L (46-116); Anion Gap 5 (5-15); Aspartate Aminotransferase 16 U/L (13-40); BUN/Creatinine Ratio 14.3 (10.0-20.0); Blood Urea Nitrogen 10 mg/dL (9-23); Calcium 9.4 mg/dL (8.5-10.1); Carbon Dioxide 32 mmol/L (20-30); Chloride 99 mmol/L (98-107); Glucose 139 mg/dL (74-106); Potassium 4.2 mmol/L (3.5-5.1); Sodium 136 mmol/L (136-145)
[2023-03-02 08:53] LABS: Bilirubin, Total 0.4 mg/dL (0.2-1.0); Total Protein 6.8 g/dL (5.7-8.2)
[2023-03-03] VITALS (16 sets, daily range): BP systolic 101–116; BP diastolic 58–74; PULSE 71–106; RESP 18–22; TEMP 97.9–98.4; O2SAT 91–99
[2023-03-04] VITALS (15 sets, daily range): BP systolic 109–132; BP diastolic 57–81; PULSE 76–107; RESP 17–21; TEMP 97.4–98.1; O2SAT 93–100
[2023-03-05] VITALS (15 sets, daily range): BP systolic 100–139; BP diastolic 57–77; PULSE 64–104; RESP 16–21; TEMP 97.6–98.6; O2SAT 90–100
[2023-03-06] VITALS (17 sets, daily range): BP systolic 92–126; BP diastolic 40–76; PULSE 92–111; RESP 15–19; TEMP 97.7–98; O2SAT 91–100
[2023-03-07] VITALS (16 sets, daily range): BP systolic 116–122; BP diastolic 67–82; PULSE 84–105; RESP 16–20; TEMP 97.6–98.3; O2SAT 90–98
[2023-03-08] VITALS (17 sets, daily range): BP systolic 99–122; BP diastolic 61–88; PULSE 86–98; RESP 14–19; TEMP 97.7–99.2; O2SAT 92–99
[2023-03-09] VITALS (19 sets, daily range): BP systolic 107–118; BP diastolic 60–78; PULSE 70–99; RESP 16–24; TEMP 97.7–99.1; O2SAT 90–98
[2023-03-10] VITALS (16 sets, daily range): BP systolic 109–131; BP diastolic 60–79; PULSE 69–102; RESP 16–22; TEMP 97.8–98.9; O2SAT 92–100
[2023-03-11] VITALS (14 sets, daily range): BP systolic 105–135; BP diastolic 67–77; PULSE 86–102; RESP 18–22; TEMP 97.5–98.2; O2SAT 92–100
[2023-03-12] VITALS (16 sets, daily range): BP systolic 112–141; BP diastolic 70–82; PULSE 49–93; RESP 16–21; TEMP 97–97.9; O2SAT 92–100
[2023-03-13] VITALS (17 sets, daily range): BP systolic 101–127; BP diastolic 61–82; PULSE 53–111; RESP 17–22; TEMP 97.6–98.1; O2SAT 85–100
[2023-03-14] VITALS (17 sets, daily range): BP systolic 107–133; BP diastolic 62–76; PULSE 85–120; RESP 16–22; TEMP 97.8–98.3; O2SAT 93–100
[2023-03-15] VITALS (20 sets, daily range): BP systolic 110–132; BP diastolic 65–85; PULSE 80–101; RESP 18–22; TEMP 98–99.1; O2SAT 91–100
[2023-03-16] VITALS (17 sets, daily range): BP systolic 109–140; BP diastolic 69–87; PULSE 88–102; RESP 17–20; TEMP 97.3–98; O2SAT 93–100
[2023-03-17] VITALS (18 sets, daily range): BP systolic 99–135; BP diastolic 57–79; PULSE 85–107; RESP 15–20; TEMP 97.7–98.5; O2SAT 92–100
[2023-03-18] VITALS (16 sets, daily range): BP systolic 111–128; BP diastolic 74–89; PULSE 79–106; RESP 16–21; TEMP 97.5–98.5; O2SAT 91–100
[2023-03-18] MEDS: HYDROcodone-ACET 5/325MG TAB PO PRN (21:10)
[2023-03-19] VITALS (16 sets, daily range): BP systolic 119–139; BP diastolic 56–89; PULSE 92–106; RESP 18–23; TEMP 97.5–98.5; O2SAT 93–98
[2023-03-19] MEDS: HYDROcodone-ACET 10/325MG TAB PO PRN (15:50)
[2023-03-20] VITALS (18 sets, daily range): BP systolic 114–139; BP diastolic 69–89; PULSE 90–116; RESP 18–22; TEMP 97.7–98.7; O2SAT 90–100
[2023-03-21] VITALS (21 sets, daily range): BP systolic 113–122; BP diastolic 71–82; PULSE 67–113; RESP 18–22; TEMP 97.7–98.8; O2SAT 92–100
[2023-03-22] VITALS (18 sets, daily range): BP systolic 104–140; BP diastolic 68–86; PULSE 85–112; RESP 18–25; TEMP 97.6–98.8; O2SAT 91–100
[2023-03-23] VITALS (13 sets, daily range): BP systolic 107–134; BP diastolic 58–77; PULSE 86–108; RESP 15–22; TEMP 97.6–98.4; O2SAT 92–100
[2023-03-24] VITALS (17 sets, daily range): BP systolic 112–142; BP diastolic 74–81; PULSE 74–115; RESP 18–21; TEMP 97.8–98.6; O2SAT 91–99
[2023-03-25] VITALS (17 sets, daily range): BP systolic 107–130; BP diastolic 65–86; PULSE 89–103; RESP 16–20; TEMP 97.7–98; O2SAT 6–100
[2023-03-26] VITALS (18 sets, daily range): BP systolic 104–149; BP diastolic 71–90; PULSE 88–108; RESP 16–21; TEMP 97.8–98.6; O2SAT 93–100
[2023-03-27] VITALS (19 sets, daily range): BP systolic 107–136; BP diastolic 63–79; PULSE 76–106; RESP 17–22; TEMP 97.5–98.4; O2SAT 91–99
[2023-03-28] VITALS (18 sets, daily range): BP systolic 111–134; BP diastolic 69–80; PULSE 80–101; RESP 18–25; TEMP 97.6–98.2; O2SAT 93–99
[2023-03-28] MEDS: HYDROcodone-ACET 10/325MG TAB PO PRN (20:56)
[2023-03-29] VITALS (18 sets, daily range): BP systolic 100–134; BP diastolic 60–81; PULSE 89–109; RESP 19–22; TEMP 97.6–98.1; O2SAT 92–98
[2023-03-30] VITALS (15 sets, daily range): BP systolic 102–135; BP diastolic 55–78; PULSE 87–102; RESP 17–22; TEMP 97.5–98.8; O2SAT 91–100
[2023-03-31] VITALS (10 sets, daily range): BP systolic 105–120; BP diastolic 65–84; PULSE 72–99; RESP 18–21; TEMP 97.8–98.7; O2SAT 90–98
[2023-03-31] MEDS: IPRATROPIUM BROM 0.5 MG/2.5ML INH SOL NEB PRN (00:19)
[2023-03-31] MEDS: ALBUTEROL SULF 2.5 MG/0.5ML(0.5%) NEB SOLN NEB PRN (00:19)
[2023-04-01] VITALS (9 sets, daily range): BP systolic 102–133; BP diastolic 66–82; PULSE 88–102; RESP 20–21; TEMP 97.7–98.6; O2SAT 92–97
[2023-04-01] MEDS: GABAPENTIN 300 MG CAP PO SCH (21:43)
[2023-04-02] VITALS (11 sets, daily range): BP systolic 117–145; BP diastolic 73–82; PULSE 73–113; RESP 16–20; TEMP 97.6–98.5; O2SAT 89–99
[2023-04-02 07:00] LABS: Alanine Aminotransferase 18 U/L (7-40); Alkaline Phosphatase 73 U/L (46-116); Anion Gap 6 (5-15); Aspartate Aminotransferase 15 U/L (13-40); BUN/Creatinine Ratio 14.1 (10.0-20.0); Basophils # (auto) 0 10 ^3/uL (0-0.2); Basophils % (auto) 0.6 % (0.0-2.0); Bilirubin, Total 0.3 mg/dL (0.2-1.0); Blood Urea Nitrogen 10 mg/dL (9-23); Calcium 9.7 mg/dL (8.5-10.1); Carbon Dioxide 31 mmol/L (20-30); Chloride 100 mmol/L (98-107); Eosinophils # (auto) 0.2 10 ^3/uL (0-0.8); Eosinophils % (auto) 2.4 % (0.0-7.0); Glucose 131 mg/dL (74-106); Hematocrit 45.9 % (41.0-53.0); Hemoglobin 15.5 g/dL (13.5-17.5); Lymphocytes # (auto) 1.5 10 ^3/uL (0.4-5.4); Lymphocytes % (auto) 24.9 % (10.0-50.0); Mean Corpuscular Hemoglobin 31.1 pg (28.0-32.0); Mean Corpuscular Hgb Conc. 33.7 g/dL (32.0-36.0); Mean Corpuscular Volume 92.2 fL (80.0-100.0); Monocytes # (auto) 0.4 10 ^3/uL (0-1.3); Monocytes % (auto) 6.9 % (0.0-12.0); Neutrophils % (auto) 65.2 % (37.0-80.0); Nucleated Red Blood Cells % 0.1 %; Potassium 4.3 mmol/L (3.5-5.1); Red Blood Cells 4.97 10^6/uL (4.5-5.90); Red Cell Distribution Width 14.3 % (11.8-14.3); Sodium 137 mmol/L (136-145); Total Protein 6.6 g/dL (5.7-8.2); White Blood Cell 6.2 10^3/uL (4.4-10.8)
[2023-04-03] VITALS (9 sets, daily range): BP systolic 114–138; BP diastolic 68–87; PULSE 69–99; RESP 18–22; TEMP 97.6–97.9; O2SAT 91–97
[2023-04-04] VITALS (10 sets, daily range): BP systolic 115–133; BP diastolic 67–82; PULSE 91–106; RESP 18–21; TEMP 97.6–98; O2SAT 91–100
[2023-04-05] VITALS (12 sets, daily range): BP systolic 109–124; BP diastolic 66–78; PULSE 85–99; RESP 18–21; TEMP 97.8–98.5; O2SAT 93–99
[2023-04-06] VITALS (13 sets, daily range): BP systolic 111–138; BP diastolic 71–86; PULSE 77–97; RESP 14–22; TEMP 97.5–98.3; O2SAT 92–100
[2023-04-07] VITALS (8 sets, daily range): BP systolic 120–129; BP diastolic 66–78; PULSE 63–98; RESP 18–22; TEMP 97.8–98.6; O2SAT 92–98
[2023-04-08] VITALS (12 sets, daily range): BP systolic 109–145; BP diastolic 70–89; PULSE 20–100; RESP 18–20; TEMP 97.6–98.8; O2SAT 90–97
[2023-04-09] VITALS (12 sets, daily range): BP systolic 119–140; BP diastolic 77–85; PULSE 84–105; RESP 18–23; TEMP 97.8–98.6; O2SAT 93–100
[2023-04-10] VITALS (11 sets, daily range): BP systolic 102–125; BP diastolic 55–75; PULSE 89–99; RESP 16–23; TEMP 96.5–98; O2SAT 92–98
[2023-04-10] MEDS: ENOXAPARIN SOD 60 MG/0.6 ML SYRINGE SC SCH (10:09)
[2023-04-11] VITALS (10 sets, daily range): BP systolic 90–125; BP diastolic 56–75; PULSE 91–98; RESP 18–22; TEMP 97–98.6; O2SAT 90–98
[2023-04-12] VITALS (12 sets, daily range): BP systolic 102–125; BP diastolic 54–76; PULSE 91–105; RESP 17–19; TEMP 97.7–98.5; O2SAT 90–99
== END 2023-04-13 03:25 | disposition short-term general hospital (02) | DRG 552 ==
LOC: EEVIPCON → WEST WING 18:31 → TELE-WESTW 01-04 22:13 → WEST WING 01-06 14:13
PROVIDERS: ADMIT Internal Medicine; ATTEND Internal Medicine
PROC: 5A09357 Assistance with Respiratory Ventilation, Less than 24 Consecutive Hours, Continuous Positive Airway Pressure (ICD-10-PCS; 2022-11-08)
PROC: 5A09357 Assistance with Respiratory Ventilation, Less than 24 Consecutive Hours, Continuous Positive Airway Pressure (ICD-10-PCS; principal; 2022-11-09)
PROC: 5A09357 Assistance with Respiratory Ventilation, Less than 24 Consecutive Hours, Continuous Positive Airway Pressure (ICD-10-PCS; 2022-11-10)
PROC: 5A09357 Assistance with Respiratory Ventilation, Less than 24 Consecutive Hours, Continuous Positive Airway Pressure (ICD-10-PCS; 2022-11-11)
PROC: 5A09357 Assistance with Respiratory Ventilation, Less than 24 Consecutive Hours, Continuous Positive Airway Pressure (ICD-10-PCS; 2022-11-12)
PROC: 5A09357 Assistance with Respiratory Ventilation, Less than 24 Consecutive Hours, Continuous Positive Airway Pressure (ICD-10-PCS; 2022-11-13)
PROC: 5A09357 Assistance with Respiratory Ventilation, Less than 24 Consecutive Hours, Continuous Positive Airway Pressure (ICD-10-PCS; 2022-11-14)
PROC: 5A09357 Assistance with Respiratory Ventilation, Less than 24 Consecutive Hours, Continuous Positive Airway Pressure (ICD-10-PCS; 2022-11-15)
PROC: 5A09357 Assistance with Respiratory Ventilation, Less than 24 Consecutive Hours, Continuous Positive Airway Pressure (ICD-10-PCS; 2022-11-16)
PROC: 5A09357 Assistance with Respiratory Ventilation, Less than 24 Consecutive Hours, Continuous Positive Airway Pressure (ICD-10-PCS; 2022-11-17)
PROC: 5A09357 Assistance with Respiratory Ventilation, Less than 24 Consecutive Hours, Continuous Positive Airway Pressure (ICD-10-PCS; 2022-11-18)
PROC: 5A09357 Assistance with Respiratory Ventilation, Less than 24 Consecutive Hours, Continuous Positive Airway Pressure (ICD-10-PCS; 2022-11-19)
PROC: 5A09357 Assistance with Respiratory Ventilation, Less than 24 Consecutive Hours, Continuous Positive Airway Pressure (ICD-10-PCS; 2022-11-20)
PROC: 5A09357 Assistance with Respiratory Ventilation, Less than 24 Consecutive Hours, Continuous Positive Airway Pressure (ICD-10-PCS; 2022-11-21)
PROC: 5A09357 Assistance with Respiratory Ventilation, Less than 24 Consecutive Hours, Continuous Positive Airway Pressure (ICD-10-PCS; 2022-11-22)
PROC: 5A09357 Assistance with Respiratory Ventilation, Less than 24 Consecutive Hours, Continuous Positive Airway Pressure (ICD-10-PCS; 2022-11-23)
PROC: 5A09357 Assistance with Respiratory Ventilation, Less than 24 Consecutive Hours, Continuous Positive Airway Pressure (ICD-10-PCS; 2022-11-24)
PROC: 5A09357 Assistance with Respiratory Ventilation, Less than 24 Consecutive Hours, Continuous Positive Airway Pressure (ICD-10-PCS; 2023-01-03)
PROC: 5A09357 Assistance with Respiratory Ventilation, Less than 24 Consecutive Hours, Continuous Positive Airway Pressure (ICD-10-PCS; 2023-01-04)
PROC: 5A09357 Assistance with Respiratory Ventilation, Less than 24 Consecutive Hours, Continuous Positive Airway Pressure (ICD-10-PCS; 2023-01-05)
PROC: 5A09357 Assistance with Respiratory Ventilation, Less than 24 Consecutive Hours, Continuous Positive Airway Pressure (ICD-10-PCS; 2023-01-06)
PROC: 5A09357 Assistance with Respiratory Ventilation, Less than 24 Consecutive Hours, Continuous Positive Airway Pressure (ICD-10-PCS; 2023-01-07)
PROC: 5A09357 Assistance with Respiratory Ventilation, Less than 24 Consecutive Hours, Continuous Positive Airway Pressure (ICD-10-PCS; 2023-01-08)
PROC: 5A09357 Assistance with Respiratory Ventilation, Less than 24 Consecutive Hours, Continuous Positive Airway Pressure (ICD-10-PCS; 2023-01-09)
PROC: 5A09357 Assistance with Respiratory Ventilation, Less than 24 Consecutive Hours, Continuous Positive Airway Pressure (ICD-10-PCS; 2023-01-10)
PROC: 5A09357 Assistance with Respiratory Ventilation, Less than 24 Consecutive Hours, Continuous Positive Airway Pressure (ICD-10-PCS; 2023-01-11)
PROC: 5A09357 Assistance with Respiratory Ventilation, Less than 24 Consecutive Hours, Continuous Positive Airway Pressure (ICD-10-PCS; 2023-01-12)
PROC: 5A09357 Assistance with Respiratory Ventilation, Less than 24 Consecutive Hours, Continuous Positive Airway Pressure (ICD-10-PCS; 2023-01-13)
PROC: 5A09357 Assistance with Respiratory Ventilation, Less than 24 Consecutive Hours, Continuous Positive Airway Pressure (ICD-10-PCS; 2023-01-14)
PROC: 5A09357 Assistance with Respiratory Ventilation, Less than 24 Consecutive Hours, Continuous Positive Airway Pressure (ICD-10-PCS; 2023-01-15)
PROC: 5A09357 Assistance with Respiratory Ventilation, Less than 24 Consecutive Hours, Continuous Positive Airway Pressure (ICD-10-PCS; 2023-01-16)
PROC: 5A09357 Assistance with Respiratory Ventilation, Less than 24 Consecutive Hours, Continuous Positive Airway Pressure (ICD-10-PCS; 2023-01-17)
PROC: 5A09357 Assistance with Respiratory Ventilation, Less than 24 Consecutive Hours, Continuous Positive Airway Pressure (ICD-10-PCS; 2023-01-18)
PROC: 5A09357 Assistance with Respiratory Ventilation, Less than 24 Consecutive Hours, Continuous Positive Airway Pressure (ICD-10-PCS; 2023-01-19)
PROC: 5A09357 Assistance with Respiratory Ventilation, Less than 24 Consecutive Hours, Continuous Positive Airway Pressure (ICD-10-PCS; 2023-01-20)
PROC: 5A09357 Assistance with Respiratory Ventilation, Less than 24 Consecutive Hours, Continuous Positive Airway Pressure (ICD-10-PCS; 2023-01-21)
PROC: 5A09357 Assistance with Respiratory Ventilation, Less than 24 Consecutive Hours, Continuous Positive Airway Pressure (ICD-10-PCS; 2023-01-22)
PROC: 5A09357 Assistance with Respiratory Ventilation, Less than 24 Consecutive Hours, Continuous Positive Airway Pressure (ICD-10-PCS; 2023-01-23)
PROC: 5A09357 Assistance with Respiratory Ventilation, Less than 24 Consecutive Hours, Continuous Positive Airway Pressure (ICD-10-PCS; 2023-01-24)
PROC: 5A09357 Assistance with Respiratory Ventilation, Less than 24 Consecutive Hours, Continuous Positive Airway Pressure (ICD-10-PCS; 2023-01-25)
PROC: 5A09357 Assistance with Respiratory Ventilation, Less than 24 Consecutive Hours, Continuous Positive Airway Pressure (ICD-10-PCS; 2023-01-26)
PROC: 5A09357 Assistance with Respiratory Ventilation, Less than 24 Consecutive Hours, Continuous Positive Airway Pressure (ICD-10-PCS; 2023-01-27)
PROC: 5A09357 Assistance with Respiratory Ventilation, Less than 24 Consecutive Hours, Continuous Positive Airway Pressure (ICD-10-PCS; 2023-01-28)
PROC: 5A09357 Assistance with Respiratory Ventilation, Less than 24 Consecutive Hours, Continuous Positive Airway Pressure (ICD-10-PCS; 2023-01-29)
PROC: 5A09357 Assistance with Respiratory Ventilation, Less than 24 Consecutive Hours, Continuous Positive Airway Pressure (ICD-10-PCS; 2023-01-30)
PROC: 5A09357 Assistance with Respiratory Ventilation, Less than 24 Consecutive Hours, Continuous Positive Airway Pressure (ICD-10-PCS; 2023-01-31)
PROC: 5A09357 Assistance with Respiratory Ventilation, Less than 24 Consecutive Hours, Continuous Positive Airway Pressure (ICD-10-PCS; 2023-02-01)
PROC: 5A09357 Assistance with Respiratory Ventilation, Less than 24 Consecutive Hours, Continuous Positive Airway Pressure (ICD-10-PCS; 2023-02-02)
PROC: 5A09357 Assistance with Respiratory Ventilation, Less than 24 Consecutive Hours, Continuous Positive Airway Pressure (ICD-10-PCS; 2023-02-03)
PROC: 5A09357 Assistance with Respiratory Ventilation, Less than 24 Consecutive Hours, Continuous Positive Airway Pressure (ICD-10-PCS; 2023-02-04)
PROC: 5A09357 Assistance with Respiratory Ventilation, Less than 24 Consecutive Hours, Continuous Positive Airway Pressure (ICD-10-PCS; 2023-02-05)
PROC: 5A09357 Assistance with Respiratory Ventilation, Less than 24 Consecutive Hours, Continuous Positive Airway Pressure (ICD-10-PCS; 2023-02-06)
PROC: 5A09357 Assistance with Respiratory Ventilation, Less than 24 Consecutive Hours, Continuous Positive Airway Pressure (ICD-10-PCS; 2023-02-07)
PROC: 5A09357 Assistance with Respiratory Ventilation, Less than 24 Consecutive Hours, Continuous Positive Airway Pressure (ICD-10-PCS; 2023-02-08)
PROC: 5A09357 Assistance with Respiratory Ventilation, Less than 24 Consecutive Hours, Continuous Positive Airway Pressure (ICD-10-PCS; 2023-02-09)
PROC: 5A09357 Assistance with Respiratory Ventilation, Less than 24 Consecutive Hours, Continuous Positive Airway Pressure (ICD-10-PCS; 2023-02-10)
PROC: 5A09357 Assistance with Respiratory Ventilation, Less than 24 Consecutive Hours, Continuous Positive Airway Pressure (ICD-10-PCS; 2023-02-11)
PROC: 5A09357 Assistance with Respiratory Ventilation, Less than 24 Consecutive Hours, Continuous Positive Airway Pressure (ICD-10-PCS; 2023-02-12)
PROC: 5A09357 Assistance with Respiratory Ventilation, Less than 24 Consecutive Hours, Continuous Positive Airway Pressure (ICD-10-PCS; 2023-02-13)
PROC: 5A09357 Assistance with Respiratory Ventilation, Less than 24 Consecutive Hours, Continuous Positive Airway Pressure (ICD-10-PCS; 2023-02-14)
PROC: 5A09357 Assistance with Respiratory Ventilation, Less than 24 Consecutive Hours, Continuous Positive Airway Pressure (ICD-10-PCS; 2023-02-15)
PROC: 5A09357 Assistance with Respiratory Ventilation, Less than 24 Consecutive Hours, Continuous Positive Airway Pressure (ICD-10-PCS; 2023-02-16)
PROC: 5A09357 Assistance with Respiratory Ventilation, Less than 24 Consecutive Hours, Continuous Positive Airway Pressure (ICD-10-PCS; 2023-02-17)
PROC: 5A09357 Assistance with Respiratory Ventilation, Less than 24 Consecutive Hours, Continuous Positive Airway Pressure (ICD-10-PCS; 2023-02-18)
PROC: 5A09357 Assistance with Respiratory Ventilation, Less than 24 Consecutive Hours, Continuous Positive Airway Pressure (ICD-10-PCS; 2023-02-19)
PROC: 5A09357 Assistance with Respiratory Ventilation, Less than 24 Consecutive Hours, Continuous Positive Airway Pressure (ICD-10-PCS; 2023-02-20)
PROC: 5A09357 Assistance with Respiratory Ventilation, Less than 24 Consecutive Hours, Continuous Positive Airway Pressure (ICD-10-PCS; 2023-02-21)
PROC: 5A09357 Assistance with Respiratory Ventilation, Less than 24 Consecutive Hours, Continuous Positive Airway Pressure (ICD-10-PCS; 2023-02-22)
PROC: 5A09357 Assistance with Respiratory Ventilation, Less than 24 Consecutive Hours, Continuous Positive Airway Pressure (ICD-10-PCS; 2023-02-23)
PROC: 5A09357 Assistance with Respiratory Ventilation, Less than 24 Consecutive Hours, Continuous Positive Airway Pressure (ICD-10-PCS; 2023-02-24)
PROC: 5A09357 Assistance with Respiratory Ventilation, Less than 24 Consecutive Hours, Continuous Positive Airway Pressure (ICD-10-PCS; 2023-02-25)
PROC: 5A09357 Assistance with Respiratory Ventilation, Less than 24 Consecutive Hours, Continuous Positive Airway Pressure (ICD-10-PCS; 2023-02-26)
PROC: 5A09357 Assistance with Respiratory Ventilation, Less than 24 Consecutive Hours, Continuous Positive Airway Pressure (ICD-10-PCS; 2023-02-27)
PROC: 5A09357 Assistance with Respiratory Ventilation, Less than 24 Consecutive Hours, Continuous Positive Airway Pressure (ICD-10-PCS; 2023-02-28)
PROC: 5A09357 Assistance with Respiratory Ventilation, Less than 24 Consecutive Hours, Continuous Positive Airway Pressure (ICD-10-PCS; 2023-03-01)
PROC: 5A09357 Assistance with Respiratory Ventilation, Less than 24 Consecutive Hours, Continuous Positive Airway Pressure (ICD-10-PCS; 2023-03-02)
PROC: 5A09357 Assistance with Respiratory Ventilation, Less than 24 Consecutive Hours, Continuous Positive Airway Pressure (ICD-10-PCS; 2023-03-03)
PROC: 5A09357 Assistance with Respiratory Ventilation, Less than 24 Consecutive Hours, Continuous Positive Airway Pressure (ICD-10-PCS; 2023-03-04)
PROC: 5A09357 Assistance with Respiratory Ventilation, Less than 24 Consecutive Hours, Continuous Positive Airway Pressure (ICD-10-PCS; 2023-03-05)
PROC: 5A09357 Assistance with Respiratory Ventilation, Less than 24 Consecutive Hours, Continuous Positive Airway Pressure (ICD-10-PCS; 2023-03-06)
PROC: 5A09357 Assistance with Respiratory Ventilation, Less than 24 Consecutive Hours, Continuous Positive Airway Pressure (ICD-10-PCS; 2023-03-07)
PROC: 5A09357 Assistance with Respiratory Ventilation, Less than 24 Consecutive Hours, Continuous Positive Airway Pressure (ICD-10-PCS; 2023-03-08)
PROC: 5A09357 Assistance with Respiratory Ventilation, Less than 24 Consecutive Hours, Continuous Positive Airway Pressure (ICD-10-PCS; 2023-03-09)
PROC: 5A09357 Assistance with Respiratory Ventilation, Less than 24 Consecutive Hours, Continuous Positive Airway Pressure (ICD-10-PCS; 2023-03-10)
PROC: 5A09357 Assistance with Respiratory Ventilation, Less than 24 Consecutive Hours, Continuous Positive Airway Pressure (ICD-10-PCS; 2023-03-11)
PROC: 5A09357 Assistance with Respiratory Ventilation, Less than 24 Consecutive Hours, Continuous Positive Airway Pressure (ICD-10-PCS; 2023-03-12)
PROC: 5A09357 Assistance with Respiratory Ventilation, Less than 24 Consecutive Hours, Continuous Positive Airway Pressure (ICD-10-PCS; 2023-03-13)
PROC: 5A09357 Assistance with Respiratory Ventilation, Less than 24 Consecutive Hours, Continuous Positive Airway Pressure (ICD-10-PCS; 2023-03-14)
PROC: 5A09357 Assistance with Respiratory Ventilation, Less than 24 Consecutive Hours, Continuous Positive Airway Pressure (ICD-10-PCS; 2023-03-15)
PROC: 5A09357 Assistance with Respiratory Ventilation, Less than 24 Consecutive Hours, Continuous Positive Airway Pressure (ICD-10-PCS; 2023-03-16)
PROC: 5A09357 Assistance with Respiratory Ventilation, Less than 24 Consecutive Hours, Continuous Positive Airway Pressure (ICD-10-PCS; 2023-03-17)
PROC: 5A09357 Assistance with Respiratory Ventilation, Less than 24 Consecutive Hours, Continuous Positive Airway Pressure (ICD-10-PCS; 2023-03-18)
PROC: 5A09357 Assistance with Respiratory Ventilation, Less than 24 Consecutive Hours, Continuous Positive Airway Pressure (ICD-10-PCS; 2023-03-19)
PROC: 5A09357 Assistance with Respiratory Ventilation, Less than 24 Consecutive Hours, Continuous Positive Airway Pressure (ICD-10-PCS; 2023-03-20)
PROC: 5A09357 Assistance with Respiratory Ventilation, Less than 24 Consecutive Hours, Continuous Positive Airway Pressure (ICD-10-PCS; 2023-03-21)
PROC: 5A09357 Assistance with Respiratory Ventilation, Less than 24 Consecutive Hours, Continuous Positive Airway Pressure (ICD-10-PCS; 2023-03-22)
PROC: 5A09357 Assistance with Respiratory Ventilation, Less than 24 Consecutive Hours, Continuous Positive Airway Pressure (ICD-10-PCS; 2023-03-23)
PROC: 5A09357 Assistance with Respiratory Ventilation, Less than 24 Consecutive Hours, Continuous Positive Airway Pressure (ICD-10-PCS; 2023-03-24)
PROC: 5A09357 Assistance with Respiratory Ventilation, Less than 24 Consecutive Hours, Continuous Positive Airway Pressure (ICD-10-PCS; 2023-03-25)
PROC: 5A09357 Assistance with Respiratory Ventilation, Less than 24 Consecutive Hours, Continuous Positive Airway Pressure (ICD-10-PCS; 2023-03-26)
PROC: 5A09357 Assistance with Respiratory Ventilation, Less than 24 Consecutive Hours, Continuous Positive Airway Pressure (ICD-10-PCS; 2023-03-27)
PROC: 5A09357 Assistance with Respiratory Ventilation, Less than 24 Consecutive Hours, Continuous Positive Airway Pressure (ICD-10-PCS; 2023-03-28)
PROC: 5A09357 Assistance with Respiratory Ventilation, Less than 24 Consecutive Hours, Continuous Positive Airway Pressure (ICD-10-PCS; 2023-03-29)
PROC: 5A09357 Assistance with Respiratory Ventilation, Less than 24 Consecutive Hours, Continuous Positive Airway Pressure (ICD-10-PCS; 2023-03-30)
PROC: 5A09357 Assistance with Respiratory Ventilation, Less than 24 Consecutive Hours, Continuous Positive Airway Pressure (ICD-10-PCS; 2023-03-31)
PROC: 5A09357 Assistance with Respiratory Ventilation, Less than 24 Consecutive Hours, Continuous Positive Airway Pressure (ICD-10-PCS; 2023-04-01)
PROC: 5A09357 Assistance with Respiratory Ventilation, Less than 24 Consecutive Hours, Continuous Positive Airway Pressure (ICD-10-PCS; 2023-04-02)
PROC: 5A09357 Assistance with Respiratory Ventilation, Less than 24 Consecutive Hours, Continuous Positive Airway Pressure (ICD-10-PCS; 2023-04-03)
PROC: 5A09357 Assistance with Respiratory Ventilation, Less than 24 Consecutive Hours, Continuous Positive Airway Pressure (ICD-10-PCS; 2023-04-04)
PROC: 5A09357 Assistance with Respiratory Ventilation, Less than 24 Consecutive Hours, Continuous Positive Airway Pressure (ICD-10-PCS; 2023-04-05)
PROC: 5A09357 Assistance with Respiratory Ventilation, Less than 24 Consecutive Hours, Continuous Positive Airway Pressure (ICD-10-PCS; 2023-04-06)
PROC: 5A09357 Assistance with Respiratory Ventilation, Less than 24 Consecutive Hours, Continuous Positive Airway Pressure (ICD-10-PCS; 2023-04-07)
PROC: 5A09357 Assistance with Respiratory Ventilation, Less than 24 Consecutive Hours, Continuous Positive Airway Pressure (ICD-10-PCS; 2023-04-08)
PROC: 5A09357 Assistance with Respiratory Ventilation, Less than 24 Consecutive Hours, Continuous Positive Airway Pressure (ICD-10-PCS; 2023-04-09)
PROC: 5A09357 Assistance with Respiratory Ventilation, Less than 24 Consecutive Hours, Continuous Positive Airway Pressure (ICD-10-PCS; 2023-04-10)
PROC: 5A09357 Assistance with Respiratory Ventilation, Less than 24 Consecutive Hours, Continuous Positive Airway Pressure (ICD-10-PCS; 2023-04-11)
PROC: 5A09357 Assistance with Respiratory Ventilation, Less than 24 Consecutive Hours, Continuous Positive Airway Pressure (ICD-10-PCS; 2023-04-12)
DX: M48.07 Spinal stenosis, lumbosacral region (principal); G83.4 Cauda equina syndrome; Z68.45 Body mass index [BMI] 70 or greater, adult; N39.0 Urinary tract infection, site not specified; I50.30 Unspecified diastolic (congestive) heart failure; G82.20 Paraplegia, unspecified; G95.9 Disease of spinal cord, unspecified; M51.26 Other intervertebral disc displacement, lumbar region; E11.40 Type 2 diabetes mellitus with diabetic neuropathy, unspecified; E66.01 Morbid (severe) obesity due to excess calories; G47.33 Obstructive sleep apnea (adult) (pediatric); I11.0 Hypertensive heart disease with heart failure; A49.02 Methicillin resistant Staphylococcus aureus infection, unspecified site; M25.561 Pain in right knee; I50.82 Biventricular heart failure; Z53.20 Procedure and treatment not carried out because of patient's decision for unspecified reasons; Z75.1 Person awaiting admission to adequate facility elsewhere; Z79.899 Other long term (current) drug therapy; Z74.01 Bed confinement status; Z82.49 Family history of ischemic heart disease and other diseases of the circulatory system; M48.061 Spinal stenosis, lumbar region without neurogenic claudication
CPT/HCPCS: 36415; 36600; 71045; 73560; 80048; 80053; 81001; 82805; 82962; 83036; 85025; 87081; 87086; 87088; 87186; 93306; 94640; 94660; 97110; 97116; 97163; 97530; G0378; J0696; J2250

== ENCOUNTER 2023-04-17 15:11 | Inpatient (IN) | payer OTHER ==
[~2023-04-17] VITALS: Ht 172.7 cm; Wt 233.1 kg
[~2023-04-17 15:11] MED LIST: DOCU-265 PO; ENO60SY SC; FURO40TA4 PO; GABA-1251 PO; HYDR-4902 PO; IBUP-1455 PO; LOSA-534 PO; METH-1181 PO; NIFE1TAB31 PO; POTA-211 PO; SENN-105 PO
[2023-04-18] VITALS (10 sets, daily range): BP systolic 107–130; BP diastolic 54–77; PULSE 80–98; RESP 16–22; TEMP 97.6–98.7; O2SAT 90–98
[2023-04-18] MEDS: HYDROcodone-ACET 5/325MG TAB PO PRN (06:05)
[2023-04-18] MEDS: GABAPENTIN 300 MG CAP PO SCH (06:08)
[2023-04-18 11:58] LABS: Basophils # (auto) 0 10 ^3/uL (0-0.2); Basophils % (auto) 0.5 % (0.0-2.0); Eosinophils # (auto) 0.2 10 ^3/uL (0-0.8); Eosinophils % (auto) 2.3 % (0.0-7.0); Hematocrit 46.4 % (41.0-53.0); Lymphocytes # (auto) 1.6 10 ^3/uL (0.4-5.4); Lymphocytes % (auto) 22.3 % (10.0-50.0); Mean Corpuscular Hemoglobin 29.7 pg (28.0-32.0); Mean Corpuscular Hgb Conc. 32.3 g/dL (32.0-36.0); Mean Corpuscular Volume 91.8 fL (80.0-100.0); Monocytes # (auto) 0.6 10 ^3/uL (0-1.3); Monocytes % (auto) 8.7 % (0.0-12.0); Neutrophils # (auto) 4.7 10 ^3/uL (1.6-8.6); Neutrophils % (auto) 66.2 % (37.0-80.0); Nucleated Red Blood Cells % 0.1 %; Red Blood Cells 5.06 10^6/uL (4.5-5.90); Red Cell Distribution Width 14.5 % (11.8-14.3); White Blood Cell 7.1 10^3/uL (4.4-10.8)
[2023-04-18 12:15] LABS: Alanine Aminotransferase 22 U/L (7-40); Alkaline Phosphatase 69 U/L (46-116); Anion Gap 3 (5-15); Aspartate Aminotransferase 14 U/L (13-40); BUN/Creatinine Ratio 18.6 (10.0-20.0); Blood Urea Nitrogen 13 mg/dL (9-23); Calcium 9.9 mg/dL (8.7-10.4); Carbon Dioxide 33 mmol/L (20-30); Chloride 101 mmol/L (98-107); Glucose 122 mg/dL (74-106); Potassium 4.4 mmol/L (3.5-5.1); Sodium 137 mmol/L (136-145)
[2023-04-18 12:16] LABS: Albumin 4.1 g/dL (3.2-4.8); Bilirubin, Total 0.5 mg/dL (0.2-1.0)
[2023-04-18] MEDS ORDERED: MORPHINE SULFATE INJ 2 MG/ml SYRG IV PRN (12:30)
[2023-04-18] MEDS ORDERED: NITROGLYCERIN 0.4 MG SL TAB SL PRN (12:30)
[2023-04-18] MEDS: IBUPROFEN 600 MG TAB PO PRN (16:20)
[2023-04-19] VITALS (11 sets, daily range): BP systolic 102–141; BP diastolic 59–76; PULSE 62–99; RESP 16–20; TEMP 97.8–98.6; O2SAT 92–100
[2023-04-19] MEDS: ENOXAPARIN SOD 60 MG/0.6 ML SYRINGE SC SCH (10:25)
[2023-04-19] MEDS: MUPIROCIN 2% OINT 15gm or 22gm FOR MRSA NARES EACHNOSTRI SCH (22:17)
[2023-04-20] VITALS (7 sets, daily range): BP systolic 116–120; BP diastolic 66–74; PULSE 84–95; RESP 18–20; TEMP 97.8–98; O2SAT 93–99
[2023-04-20] MEDS ORDERED: ACETAMINOPHEN 325 MG TAB PO PRN (11:45)
[2023-04-20] MEDS: GABAPENTIN 300 MG CAP PO SCH (11:45)
[2023-04-20] MEDS: METHOCARBAMOL 500 MG TAB PO PRN (13:41)
[2023-04-20] MEDS: FUROSEMIDE 40 MG TAB PO SCH (18:08)
[2023-04-20] MEDS: PANTOPRAZOLE 40 MG TAB PO SCH (22:13)
[2023-04-20] MEDS: DOCUSATE SOD 100 MG CAP PO SCH (22:14)
[2023-04-21] VITALS (15 sets, daily range): BP systolic 107–128; BP diastolic 57–87; PULSE 79–104; RESP 16–21; TEMP 97.8–98.1; O2SAT 89–99
[2023-04-21] MEDS: NIFEdipine ER 30 MG TAB PO SCH (08:42)
[2023-04-21] MEDS: POLYETHYLENE GLYCOL 17 GM PWDR PO SCH (08:42)
[2023-04-21] MEDS: LOSARTAN POTASSIUM 50 MG TAB PO SCH (08:43)
[2023-04-21] MEDS: ALBUTEROL SULF 2.5 MG/0.5ML(0.5%) NEB SOLN NEB PRN (22:36)
[2023-04-22] VITALS (8 sets, daily range): BP systolic 104–112; BP diastolic 55–72; PULSE 77–103; RESP 16–21; TEMP 97.8–98.2; O2SAT 90–99
[2023-04-23] VITALS (10 sets, daily range): BP systolic 120–138; BP diastolic 69–83; PULSE 57–93; RESP 17–22; TEMP 97.2–98.3; O2SAT 92–100
[2023-04-24] VITALS (12 sets, daily range): BP systolic 108–129; BP diastolic 60–81; PULSE 88–101; RESP 17–20; TEMP 97.5–98.1; O2SAT 92–100
[2023-04-25] VITALS (11 sets, daily range): BP systolic 106–135; BP diastolic 65–84; PULSE 69–101; RESP 15–20; TEMP 97.5–98.1; O2SAT 90–100
[2023-04-26] VITALS (11 sets, daily range): BP systolic 108–126; BP diastolic 53–80; PULSE 60–103; RESP 18–20; TEMP 97.2–98.4; O2SAT 92–99
[2023-04-27] VITALS (16 sets, daily range): BP systolic 101–126; BP diastolic 59–67; PULSE 74–115; RESP 16–20; TEMP 97.4–99.2; O2SAT 92–99
[2023-04-27] MEDS: IBUPROFEN 800 MG TAB PO PRN (18:07)
[2023-04-28] VITALS (9 sets, daily range): BP systolic 106–113; BP diastolic 56–72; PULSE 69–106; RESP 16–22; TEMP 97.8–99; O2SAT 95–100
[2023-04-28 10:04] LABS: Basophils # (auto) 0 10 ^3/uL (0-0.2); Basophils % (auto) 0.5 % (0.0-2.0); Eosinophils # (auto) 0.1 10 ^3/uL (0-0.8); Eosinophils % (auto) 1.3 % (0.0-7.0); Hematocrit 46.5 % (41.0-53.0); Hemoglobin 15.2 g/dL (13.5-17.5); Lymphocytes # (auto) 1.1 10 ^3/uL (0.4-5.4); Lymphocytes % (auto) 16.8 % (10.0-50.0); Mean Corpuscular Hgb Conc. 32.7 g/dL (32.0-36.0); Mean Corpuscular Volume 91.7 fL (80.0-100.0); Monocytes # (auto) 0.6 10 ^3/uL (0-1.3); Monocytes % (auto) 9.6 % (0.0-12.0); Neutrophils # (auto) 4.6 10 ^3/uL (1.6-8.6); Neutrophils % (auto) 71.8 % (37.0-80.0); Red Blood Cells 5.07 10^6/uL (4.5-5.90); Red Cell Distribution Width 14.9 % (11.8-14.3); White Blood Cell 6.3 10^3/uL (4.4-10.8)
[2023-04-28 10:22] LABS: Alanine Aminotransferase 16 U/L (7-40); Albumin 4.2 g/dL (3.2-4.8); Alkaline Phosphatase 72 U/L (46-116); Anion Gap 6 (5-15); Aspartate Aminotransferase 13 U/L (13-40); Bilirubin, Total 0.5 mg/dL (0.2-1.0); Blood Urea Nitrogen 9 mg/dL (9-23); Calcium 9.4 mg/dL (8.5-10.1); Carbon Dioxide 35 mmol/L (20-30); Chloride 96 mmol/L (98-107); Glucose 130 mg/dL (74-106); Potassium 3.3 mmol/L (3.5-5.1); Sodium 137 mmol/L (136-145)
[2023-04-29] VITALS (10 sets, daily range): BP systolic 107–142; BP diastolic 58–89; PULSE 69–113; RESP 16–20; TEMP 97.5–98.7; O2SAT 93–100
[2023-04-29 08:55] LABS: Chloride 98 mmol/L (98-107); Potassium 3.8 mmol/L (3.5-5.1); Sodium 136 mmol/L (136-145)
[2023-04-29 08:56] LABS: Anion Gap 6 (5-15); Carbon Dioxide 32 mmol/L (20-30)
[2023-04-29 08:57] LABS: Calcium 9.7 mg/dL (8.5-10.1)
[2023-04-29 09:02] LABS: BUN/Creatinine Ratio 7.4 (10.0-20.0); Blood Urea Nitrogen 6 mg/dL (9-23); Glucose 173 mg/dL (74-106)
[2023-04-30] VITALS (13 sets, daily range): BP systolic 106–150; BP diastolic 58–91; PULSE 70–104; RESP 18–20; TEMP 97.7–98.3; O2SAT 91–99
[2023-05-01] VITALS (10 sets, daily range): BP systolic 100–123; BP diastolic 58–79; PULSE 88–101; RESP 16–21; TEMP 97.3–98.7; O2SAT 92–99
[2023-05-02] VITALS (11 sets, daily range): BP systolic 97–112; BP diastolic 58–73; PULSE 87–98; RESP 16–24; TEMP 97.3–98.7; O2SAT 90–100
[2023-05-03] VITALS (11 sets, daily range): BP systolic 103–132; BP diastolic 63–85; PULSE 85–109; RESP 18–24; TEMP 97.3–97.9; O2SAT 89–100
[2023-05-04] VITALS (11 sets, daily range): BP systolic 103–111; BP diastolic 63–74; PULSE 84–99; RESP 18–23; TEMP 97.4–99.1; O2SAT 6–99
[2023-05-04] MEDS: SEMAGLUTIDE 2 MG/3 ML SC SCH (15:49)
[2023-05-05] VITALS (10 sets, daily range): BP systolic 97–118; BP diastolic 61–68; PULSE 61–97; RESP 17–22; TEMP 98–99.1; O2SAT 92–98
[2023-05-06] VITALS (11 sets, daily range): BP systolic 96–121; BP diastolic 55–72; PULSE 81–101; RESP 15–20; TEMP 97.5–99.6; O2SAT 93–99
[2023-05-07] VITALS (11 sets, daily range): BP systolic 107–128; BP diastolic 60–71; PULSE 84–99; RESP 16–20; TEMP 97.1–98.4; O2SAT 91–99
[2023-05-08] VITALS (12 sets, daily range): BP systolic 92–113; BP diastolic 56–73; PULSE 79–96; RESP 16–21; TEMP 97.2–98.2; O2SAT 91–100
[2023-05-08 05:55] LABS: Basophils # (auto) 0 10 ^3/uL (0-0.2); Basophils % (auto) 0.7 % (0.0-2.0); Eosinophils # (auto) 0.2 10 ^3/uL (0-0.8); Eosinophils % (auto) 3.4 % (0.0-7.0); Hematocrit 47.1 % (41.0-53.0); Hemoglobin 15.3 g/dL (13.5-17.5); Lymphocytes # (auto) 1.7 10 ^3/uL (0.4-5.4); Lymphocytes % (auto) 34.2 % (10.0-50.0); Mean Corpuscular Hemoglobin 29.7 pg (28.0-32.0); Mean Corpuscular Hgb Conc. 32.6 g/dL (32.0-36.0); Mean Corpuscular Volume 91.3 fL (80.0-100.0); Monocytes # (auto) 0.4 10 ^3/uL (0-1.3); Monocytes % (auto) 8.7 % (0.0-12.0); Neutrophils # (auto) 2.7 10 ^3/uL (1.6-8.6); Nucleated Red Blood Cells % 0.2 %; Red Blood Cells 5.16 10^6/uL (4.5-5.90); Red Cell Distribution Width 14.1 % (11.8-14.3); White Blood Cell 5.1 10^3/uL (4.4-10.8)
[2023-05-08 06:16] LABS: Alanine Aminotransferase 25 U/L (7-40); Alkaline Phosphatase 63 U/L (46-116); Aspartate Aminotransferase 14 U/L (13-40); BUN/Creatinine Ratio 18.1 (10.0-20.0); Blood Urea Nitrogen 13 mg/dL (9-23); Chloride 100 mmol/L (98-107); Glucose 100 mg/dL (74-106); Potassium 3.9 mmol/L (3.5-5.1); Sodium 137 mmol/L (136-145); Total Protein 6.8 g/dL (5.7-8.2)
[2023-05-08 06:19] LABS: Anion Gap 8 (5-15); Carbon Dioxide 29 mmol/L (20-30)
[2023-05-08 06:20] LABS: Calcium 9.8 mg/dL (8.7-10.4)
[2023-05-08 06:27] LABS: Bilirubin, Total 0.4 mg/dL (0.2-1.0)
[2023-05-09] VITALS (13 sets, daily range): BP systolic 104–124; BP diastolic 48–72; PULSE 54–103; RESP 14–24; TEMP 97.5–98.6; O2SAT 89–99
[2023-05-10] VITALS (15 sets, daily range): BP systolic 93–120; BP diastolic 48–72; PULSE 66–91; RESP 16–23; TEMP 97.6–98.1; O2SAT 92–99
[2023-05-11] VITALS (12 sets, daily range): BP systolic 103–120; BP diastolic 57–73; PULSE 82–98; RESP 16–22; TEMP 97.6–98.9; O2SAT 92–100
[2023-05-12] VITALS (11 sets, daily range): BP systolic 101–121; BP diastolic 61–75; PULSE 62–97; RESP 16–22; TEMP 97.7–98.6; O2SAT 93–98
[2023-05-12] MEDS: SEMAGLUTIDE 2 MG/3 ML SC SCH (14:34)
[2023-05-13] VITALS (11 sets, daily range): BP systolic 108–123; BP diastolic 50–70; PULSE 71–95; RESP 18–94; TEMP 96–98; O2SAT 94–99
[2023-05-13 13:12] LABS: COVID19 ANTIGEN SOFIA FIA NEGATIVE (NEGATIVE); Rapid Influenza A Negative (Negative); Rapid Influenza B Negative (Negative)
[2023-05-14] VITALS (12 sets, daily range): BP systolic 102–135; BP diastolic 57–73; PULSE 72–94; RESP 18–20; TEMP 97.3–98.1; O2SAT 93–99
[2023-05-15 05:00] VITALS: BP 149/74; PULSE 81; RESP 18; TEMP 97.6; O2SAT 95
== END 2023-05-15 05:20 | DRG 74 ==
LOC: EEVIPCON → WEST WING 04-18 02:00 → UNDOADMIN 04-18 02:00 → WEST WING 04-18 09:51 → EEVIPCON 04-18 12:27 → WEST WING 04-18 12:27
PROVIDERS: ADMIT Internal Medicine; ATTEND Internal Medicine
PROC: 5A09357 Assistance with Respiratory Ventilation, Less than 24 Consecutive Hours, Continuous Positive Airway Pressure (ICD-10-PCS; principal; 2023-04-18)
PROC: 5A09357 Assistance with Respiratory Ventilation, Less than 24 Consecutive Hours, Continuous Positive Airway Pressure (ICD-10-PCS; 2023-04-19)
PROC: 5A09357 Assistance with Respiratory Ventilation, Less than 24 Consecutive Hours, Continuous Positive Airway Pressure (ICD-10-PCS; 2023-04-20)
PROC: 5A09357 Assistance with Respiratory Ventilation, Less than 24 Consecutive Hours, Continuous Positive Airway Pressure (ICD-10-PCS; 2023-04-21)
PROC: 5A09357 Assistance with Respiratory Ventilation, Less than 24 Consecutive Hours, Continuous Positive Airway Pressure (ICD-10-PCS; 2023-04-23)
PROC: 5A09357 Assistance with Respiratory Ventilation, Less than 24 Consecutive Hours, Continuous Positive Airway Pressure (ICD-10-PCS; 2023-04-27)
PROC: 5A09357 Assistance with Respiratory Ventilation, Less than 24 Consecutive Hours, Continuous Positive Airway Pressure (ICD-10-PCS; 2023-04-28)
PROC: 5A09357 Assistance with Respiratory Ventilation, Less than 24 Consecutive Hours, Continuous Positive Airway Pressure (ICD-10-PCS; 2023-04-29)
PROC: 5A09357 Assistance with Respiratory Ventilation, Less than 24 Consecutive Hours, Continuous Positive Airway Pressure (ICD-10-PCS; 2023-04-30)
PROC: 5A09357 Assistance with Respiratory Ventilation, Less than 24 Consecutive Hours, Continuous Positive Airway Pressure (ICD-10-PCS; 2023-05-01)
PROC: 5A09357 Assistance with Respiratory Ventilation, Less than 24 Consecutive Hours, Continuous Positive Airway Pressure (ICD-10-PCS; 2023-05-02)
PROC: 5A09357 Assistance with Respiratory Ventilation, Less than 24 Consecutive Hours, Continuous Positive Airway Pressure (ICD-10-PCS; 2023-05-03)
PROC: 5A09357 Assistance with Respiratory Ventilation, Less than 24 Consecutive Hours, Continuous Positive Airway Pressure (ICD-10-PCS; 2023-05-04)
PROC: 5A09357 Assistance with Respiratory Ventilation, Less than 24 Consecutive Hours, Continuous Positive Airway Pressure (ICD-10-PCS; 2023-05-05)
PROC: 5A09357 Assistance with Respiratory Ventilation, Less than 24 Consecutive Hours, Continuous Positive Airway Pressure (ICD-10-PCS; 2023-05-06)
PROC: 5A09357 Assistance with Respiratory Ventilation, Less than 24 Consecutive Hours, Continuous Positive Airway Pressure (ICD-10-PCS; 2023-05-07)
PROC: 5A09357 Assistance with Respiratory Ventilation, Less than 24 Consecutive Hours, Continuous Positive Airway Pressure (ICD-10-PCS; 2023-05-08)
PROC: 5A09357 Assistance with Respiratory Ventilation, Less than 24 Consecutive Hours, Continuous Positive Airway Pressure (ICD-10-PCS; 2023-05-10)
PROC: 5A09357 Assistance with Respiratory Ventilation, Less than 24 Consecutive Hours, Continuous Positive Airway Pressure (ICD-10-PCS; 2023-05-11)
PROC: 5A09357 Assistance with Respiratory Ventilation, Less than 24 Consecutive Hours, Continuous Positive Airway Pressure (ICD-10-PCS; 2023-05-12)
PROC: 5A09357 Assistance with Respiratory Ventilation, Less than 24 Consecutive Hours, Continuous Positive Airway Pressure (ICD-10-PCS; 2023-05-13)
DX: G83.4 Cauda equina syndrome (principal); Z68.45 Body mass index [BMI] 70 or greater, adult; M51.16 Intervertebral disc disorders with radiculopathy, lumbar region; E66.01 Morbid (severe) obesity due to excess calories; I11.0 Hypertensive heart disease with heart failure; I50.9 Heart failure, unspecified; E87.6 Hypokalemia; R73.9 Hyperglycemia, unspecified; E16.2 Hypoglycemia, unspecified; F12.90 Cannabis use, unspecified, uncomplicated; Z20.822 Contact with and (suspected) exposure to COVID-19; M50.10 Cervical disc disorder with radiculopathy, unspecified cervical region; M51.14 Intervertebral disc disorders with radiculopathy, thoracic region; B95.62 Methicillin resistant Staphylococcus aureus infection as the cause of diseases classified elsewhere; Z82.49 Family history of ischemic heart disease and other diseases of the circulatory system; Z74.01 Bed confinement status
CPT/HCPCS: 36415; 71045; 80048; 80053; 83036; 84443; 85025; 87081; 87426; 87804; 94640; 94660; 97110; 97116; 97163; 97530; G0378